=== PATIENT | male | born 1935 | race Caucasian/White ===

== ENCOUNTER 2020-08-27 14:48 | Inpatient (IN) ==
[2020-08-27] MEDS ORDERED: DEXAMETHASONE SOD INJ 10 MG/ML VIAL IV ONE (14:57)
--- NOTE | 2020-08-27 15:08 | Emergency Department Note ---
Impression & Plan Acute exacerbation of chronic obstructive airways disease, Abnormal ECG, Thrombocytopenia ED Provider Note NAME: ETHEL BUSH AGE: 84 SEX: M : 1935 ARRIVES VIA: Ambulance INFORMANT: Patient, prehospital personnel ED PROVIDER(S): Zane Major DO CHIEF COMPLAINT: Shortness of breath HPI: The patient is an 84-year-old male who presented to the emergency department for an evaluation of shortness of breath. The patient was given a DuoNeb prior to arrival. He normally wears 2 L of oxygen at home. He states that he has been noticing significant shortness of breath cough and difficulty breathing. He denies having any specific chest pain or lower extremity swelling. He states he has been having significant weakness as well as shortness of breath with ambulation. He denies having any fever. He has had no exposure to COVID-19 as far as he knows. He was not able to see his primary care physician for the symptoms. He states that they began approximately 2 weeks ago and have gotten worse significantly over the last 48 hours. The patient has been compliant with all of his medications including his nebulizer treatments. He states that these only help to a degree. ROS: See above HPI for pertinent positives & negatives. A total of 10 systems reviewed and were otherwise negative. PAST MEDICAL HISTORY: See Below PAST SURGICAL HISTORY: See Below FAMILY HISTORY: See Below SOCIAL HISTORY: See Below HOME MEDICATIONS: See Below ALLERGIES: See Below VITALS: See Below PHYSICAL EXAMINATION: GENERAL: The patient is awake and alert. The patient is very anxious appearing and appears to be uncomfortable. EYES: The conjunctivae are clear. The pupils are round and reactive. EARS, NOSE, MOUTH AND THROAT: The nose is without any evidence of any deformity. Mucous membranes are dry. NECK: The neck is nontender and supple. RESPIRATORY: Shallow respirations were noted. The patient is sitting straight up with significant difficulty breathing. There are retractions noted. Diminished breath sounds are noted throughout. CARDIOVASCULAR: Tachycardic rate with regular rhythm was noted. There was no definite murmur. GASTROINTESTINAL: The abdomen is soft. Abdomen is nontender. MUSCULOSKELETAL/EXTREMITIES: There is no evidence of gross deformity full range of motion is noted in the hips and shoulders. SKIN: There is no obvious evidence of any rash. There are no petechiae, pallor or cyanosis noted. NEUROLOGIC: Patient is awake alert and oriented x3. MEDICAL DECISION MAKING: The patient is an 84-year-old male who presented to the emergency department for an evaluation of difficulty breathing. The patient had very severe difficulty breathing despite being on supplemental oxygen. He was treated with bronchodilator therapy prior to arrival. He received steroids and IV fluids in the emergency department. I discussed the patient's laboratory and radiographic studies with him. He still appeared to be in significant shortness of breath. I discussed his case with the on-call [facility]. They have agreed to evaluate the patient in the emergency department for further management and disposition. The patient was reevaluated multiple times. He was also found to have low platelets. I am unsure the significance of this finding at this time. There is no reported trauma or altered mental status according to his son. Triage Nursing notes reviewed. Prior medical records reviewed Vital Signs: reviewed and remarkable for no significant abnormalities Differential diagnosis: Reactive airway disease, pneumonia, pneumothorax, COPD, CHF, infections, cardiac ischemia, pulmonary embolism, musculoskeletal, gastrointestinal, as well as other pathologies. ER treatment provided: See below Diagnostics interpreted by me: ECG: EKG was obtained in the emergency department. My interpretation is normal sinus rhythm at 72 bpm. There was no ectopy. Anterior ST depressions with T wave inversions were noted. LVH was noted by voltage criteria. This was compared to a tracing from December 082009. The anterior T wave abnormalities and ST depressions are new compared to the earlier tracing. Cardiac Monitoring: An order was placed for continuous cardiac monitoring. The monitor shows a rate of 75 beats per minute with sinus rhythm. Laboratory studies: As stated above and show below. Imaging studies: See below Consultation(s): 1737: I discussed this case with Lisa who is on-call for the [facility] group. ED COURSE: Procedures: none PDMP:reviewed and no issues Critical Care: I have personally spent greater than 55 minutes of critical care time in the direct management of this patient. This includes bedside care, interpretation of diagnostic studies, and testing, discussion with consultants, patient, and family members, and other required patient management activities. This 55 minutes is in excess of all separately billable procedures. 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 Chronic obstructive pulmonary disease Hyperlipidemia Hypertension Hypoxemia Surgical History H/O hernia repair S/P bronchoscopy S/P cataract extraction S/P rotator cuff repair S/P tonsillectomy and adenoidectomy Family History Father Aneurysm of abdominal aorta Social History Smoking Status: Former smoker Preferred Language: Singaporean marital status: / Current Living Situation: Alone current occupational status: retired Feels Safe at Home: Yes Allergies Allergies Allergy/AdvReac Type Severity Reaction Status Date / Time No Known Drug Allergies Allergy Verified 01/01/20 11:53 Home Meds Home Medications Medication Instructions Recorded Confirmed ascorbic acid (vitamin C) [Vitamin 1 cap PO DAILY 08/27/20 08/27/20 C] atorvastatin 40 mg PO HS 08/27/20 08/27/20 doxycycline hyclate 100 mg PO BID PRN 08/27/20 08/27/20 levalbuterol tartrate 1 puff INHALATION Q4H PRN 08/27/20 08/27/20 [id number] 1 tab PO DAILY 08/27/20 08/27/20 [Centrum Silver] prednisone 10 mg PO DIRECTED PRN 08/27/20 08/27/20 Previous Rx's Medication Instructions Recorded aspirin 81 mg tablet,delayed 81 mg PO DAILY #30 tab 03/30/19 release tiotropium bromide 18 mcg capsule 1 cap INH DAILY #30 puffs 02/28/20 with inhalation device irbesartan 150 mg tablet 150 mg PO DAILY #90 tab 05/02/20 metoprolol tartrate 25 mg tablet 25 mg PO BID #180 tab 05/29/20 Results & Data (ED) Vital Signs Vital Signs - 24 hr 08/27/20 15:02 08/27/20 15:04 08/27/20 15:05 Temperature 36.6 C Temperature Source Oral Pulse Rate 75 74 Pulse Rate from SpO2 Sensor Pulse Rhythm Regular Pulse Strength Normal Respiratory Rate 24 25 H Respiratory Effort / Characteristics SOB on Exertion Short of Breath SOB on Exertion Respiratory Pattern Tachypnea Blood Pressure 119/62 119/62 Blood Pressure Mean 70 81 Blood Pressure Position Lying Pulse Oximetry 100 100 100 Oxygen Delivery Method Nasal Cannula Nasal Cannula Oxygen Flow Rate 4 4 Sepsis Recent Fever Within 48 Hours No Sepsis New/Unexplained Change in Mental Status No Sepsis Action Taken by Nursing No Action Required 08/27/20 15:15 08/27/20 15:30 08/27/20 15:55 Temperature Temperature Source Pulse Rate 68 70 83 Pulse Rate from SpO2 Sensor 67 70 80 Pulse Rhythm Pulse Strength Respiratory Rate 28 H 25 H 23 Respiratory Effort / Characteristics Respiratory Pattern Blood Pressure 111/69 102/65 105/62 Blood Pressure Mean 85 76 76 Blood Pressure Position Pulse Oximetry 100 100 100 Oxygen Delivery Method Oxygen Flow Rate Sepsis Recent Fever Within 48 Hours Sepsis New/Unexplained Change in Mental Status Sepsis Action Taken by Nursing 08/27/20 16:00 08/27/20 16:15 08/27/20 16:30 Temperature Temperature Source Pulse Rate 78 73 77 Pulse Rate from SpO2 Sensor 77 73 77 Pulse Rhythm Pulse Strength Respiratory Rate 22 20 25 H Respiratory Effort / Characteristics Respiratory Pattern Blood Pressure 117/62 109/64 108/65 Blood Pressure Mean 78 82 76 Blood Pressure Position Pulse Oximetry 100 100 100 Oxygen Delivery Method Oxygen Flow Rate Sepsis Recent Fever Within 48 Hours Sepsis New/Unexplained Change in Mental Status Sepsis Action Taken by Nursing 08/27/20 16:45 08/27/20 17:05 08/27/20 17:15 Temperature Temperature Source Pulse Rate 77 75 72 Pulse Rate from SpO2 Sensor 74 76 72 Pulse Rhythm Pulse Strength Respiratory Rate 24 21 22 Respiratory Effort / Characteristics Respiratory Pattern Blood Pressure 127/77 127/73 118/70 Blood Pressure Mean 99 90 79 Blood Pressure Position Pulse Oximetry 97 100 100 Oxygen Delivery Method Oxygen Flow Rate Sepsis Recent Fever Within 48 Hours Sepsis New/Unexplained Change in Mental Status Sepsis Action Taken by [facility]dc Medications Current Medication List: was personally reviewed by me Laboratory Data Attestation: I reviewed the patient's lab results. Result diagrams: 08/27/20 15:20 08/27/20 15:20 Lab Results 08/27/20 08/27/20 08/27/20 Range/Units 15:20 15:20 15:20 WBC 9.59 (4.8-10.8) K/uL RBC 4.19 L (4.7-6.1) M/uL Hgb 12.2 L (14.0-18.0) g/dL POC Hgb (14.0-18.0) g/dl Hct 40.2 L (42-52) % POC Hct (42-52) % MCV 95.9 (80-100) fL MCH 29.1 (25-34) pg MCHC 30.3 L (32-36) g/dL RDW Std Deviation 47.1 H (36.4-46.3) fL RDW Coeff of Sandy 13.5 (11.5-14.5) % Plt Count 10 L* (130-400) K/uL Immature Gran % (Auto) 0.1 % Neut % (Auto) 77.7 % Lymph % (Auto) 10.0 % Ray % (Auto) 11.3 % Eos % (Auto) 0.6 % Baso % (Auto) 0.3 % Neut # (Auto) 7.45 H (1.4-6.5) K/uL Lymph # (Auto) 0.96 L (1.2-3.4) K/uL Ray # (Auto) 1.08 H (0.11-0.59) K/uL Eos # (Auto) 0.06 (0-0.5) K/uL Baso # (Auto) 0.03 (0-0.2) K/uL Immature Gran # (Auto) 0.01 (0.00-0.02) K/uL Platelet Estimate SIGNIFIC DECREASED (Normal) Echinocytes 1+ ESR 2 (0-14) mm/hr PT 12.4 H (9.0-12.0) Seconds INR 1.2 H (0.9-1.1) APTT 26.5 (21.0-31.0) Seconds PTT Ratio 0.9 D-Dimer 5590 H* (0-500) ug/L FEU POC Sodium (135-144) mmol/L Sodium (136-145) mmol/L POC Potassium (3.3-5.0) mmol/L Potassium (3.5-5.1) mmol/L POC Chloride (101-112) mmol/L Chloride (98-107) mmol/L Carbon Dioxide (21-32) mmol/L POC Total CO2 (24-31) mmol/L Anion Gap (3-11) POC Anion Gap (16-25) mmol/L POC BUN (7-18) mg/dl BUN (7-18) mg/dl Creatinine (0.6-1.4) mg/dl POC Creatinine (0.6-1.3) mg/dl Est Cr Clr Drug Dosing ml/min Est GFR ( Amer) Est GFR (Non-Af Amer) BUN/Creatinine Ratio (10-20) Glucose (70-99) mg/dl POC Glucose (other) (70-99) mg/dl Lactate (0.4-2.0) mmol/L Calcium (8.5-10.1) mg/dl POC Ioniz Calcium Boris (1.12-1.32) mmol/l Magnesium (1.8-2.4) mg/dl Total Bilirubin (0.2-1) mg/dl AST (15-37) U/L ALT (12-78) U/L Alkaline Phosphatase (45-117) U/L Troponin I (0-0.045) ng/ml C-Reactive Protein (0-0.29) mg/dl Total Protein (6.4-8.2) gm/dl Albumin (3.4-5.0) gm/dl Globulin (2.5-4.0) gm/dl Albumin/Globulin Ratio (0.9-2) Procalcitonin (0-0.5) ng/ml Specimen Hemolysis COVID-19 Eval Order SARS-CoV-2, RNA, NAAT (NEGATIVE) 08/27/20 08/27/20 08/27/20 Range/Units 15:20 15:20 15:20 WBC (4.8-10.8) K/uL RBC (4.7-6.1) M/uL Hgb (14.0-18.0) g/dL POC Hgb (14.0-18.0) g/dl Hct (42-52) % POC Hct (42-52) % MCV (80-100) fL MCH (25-34) pg MCHC (32-36) g/dL RDW Std Deviation (36.4-46.3) fL RDW Coeff of Sandy (11.5-14.5) % Plt Count (130-400) K/uL Immature Gran % (Auto) % Neut % (Auto) % Lymph % (Auto) % Ray % (Auto) % Eos % (Auto) % Baso % (Auto) % Neut # (Auto) (1.4-6.5) K/uL Lymph # (Auto) (1.2-3.4) K/uL Ray # (Auto) (0.11-0.59) K/uL Eos # (Auto) (0-0.5) K/uL Baso # (Auto) (0-0.2) K/uL Immature Gran # (Auto) (0.00-0.02) K/uL Platelet Estimate (Normal) Echinocytes ESR (0-14) mm/hr PT (9.0-12.0) Seconds INR (0.9-1.1) APTT (21.0-31.0) Seconds PTT Ratio D-Dimer (0-500) ug/L FEU POC Sodium (135-144) mmol/L Sodium 137 (136-145) mmol/L POC Potassium (3.3-5.0) mmol/L Potassium 4.3 (3.5-5.1) mmol/L POC Chloride (101-112) mmol/L Chloride 103 (98-107) mmol/L Carbon Dioxide 33 H (21-32) mmol/L POC Total CO2 (24-31) mmol/L Anion Gap 1.0 L (3-11) POC Anion Gap (16-25) mmol/L POC BUN (7-18) mg/dl BUN 31 H (7-18) mg/dl Creatinine 1.33 (0.6-1.4) mg/dl POC Creatinine (0.6-1.3) mg/dl Est Cr Clr Drug Dosing 39.8 ml/min Est GFR ( Amer) 56.9 Est GFR (Non-Af Amer) 49.1 BUN/Creatinine Ratio 23.4 H (10-20) Glucose 101 H (70-99) mg/dl POC Glucose (other) (70-99) mg/dl Lactate 1.5 (0.4-2.0) mmol/L Calcium 9.6 (8.5-10.1) mg/dl POC Ioniz Calcium Boris (1.12-1.32) mmol/l Magnesium 2.5 H (1.8-2.4) mg/dl Total Bilirubin 0.8 (0.2-1) mg/dl AST 18 (15-37) U/L ALT 21 (12-78) U/L Alkaline Phosphatase 66 (45-117) U/L Troponin I 0.050 H* (0-0.045) ng/ml C-Reactive Protein 0.66 H (0-0.29) mg/dl Total Protein 6.0 L (6.4-8.2) gm/dl Albumin 3.2 L (3.4-5.0) gm/dl Globulin 2.8 (2.5-4.0) gm/dl Albumin/Globulin Ratio 1.1 (0.9-2) Procalcitonin < 0.05 (0-0.5) ng/ml Specimen Hemolysis COVID-19 Eval Order SARS-CoV-2, RNA, NAAT (NEGATIVE) 08/27/20 08/27/20 08/27/20 Range/Units 15:20 15:20 15:29 WBC (4.8-10.8) K/uL RBC (4.7-6.1) M/uL Hgb (14.0-18.0) g/dL POC Hgb 12.9 L (14.0-18.0) g/dl Hct (42-52) % POC Hct 38 L (42-52) % MCV (80-100) fL MCH (25-34) pg MCHC (32-36) g/dL RDW Std Deviation (36.4-46.3) fL RDW Coeff of Sandy (11.5-14.5) % Plt Count (130-400) K/uL Immature Gran % (Auto) % Neut % (Auto) % Lymph % (Auto) % Ray % (Auto) % Eos % (Auto) % Baso % (Auto) % Neut # (Auto) (1.4-6.5) K/uL Lymph # (Auto) (1.2-3.4) K/uL Ray # (Auto) (0.11-0.59) K/uL Eos # (Auto) (0-0.5) K/uL Baso # (Auto) (0-0.2) K/uL Immature Gran # (Auto) (0.00-0.02) K/uL Platelet Estimate (Normal) Echinocytes ESR (0-14) mm/hr PT (9.0-12.0) Seconds INR (0.9-1.1) APTT (21.0-31.0) Seconds PTT Ratio D-Dimer (0-500) ug/L FEU POC Sodium 137 (135-144) mmol/L Sodium (136-145) mmol/L POC Potassium 4.3 (3.3-5.0) mmol/L Potassium (3.5-5.1) mmol/L POC Chloride 100 L (101-112) mmol/L Chloride (98-107) mmol/L Carbon Dioxide (21-32) mmol/L POC Total CO2 34 H (24-31) mmol/L Anion Gap (3-11) POC Anion Gap 8.0 L (16-25) mmol/L POC BUN 37 H (7-18) mg/dl BUN (7-18) mg/dl Creatinine (0.6-1.4) mg/dl POC Creatinine 1.4 H (0.6-1.3) mg/dl Est Cr Clr Drug Dosing ml/min Est GFR ( Amer) Est GFR (Non-Af Amer) BUN/Creatinine Ratio (10-20) Glucose (70-99) mg/dl POC Glucose (other) 106 H (70-99) mg/dl Lactate (0.4-2.0) mmol/L Calcium (8.5-10.1) mg/dl POC Ioniz Calcium Boris 1.41 H (1.12-1.32) mmol/l Magnesium (1.8-2.4) mg/dl Total Bilirubin (0.2-1) mg/dl AST (15-37) U/L ALT (12-78) U/L Alkaline Phosphatase (45-117) U/L Troponin I (0-0.045) ng/ml C-Reactive Protein (0-0.29) mg/dl Total Protein (6.4-8.2) gm/dl Albumin (3.4-5.0) gm/dl Globulin (2.5-4.0) gm/dl Albumin/Globulin Ratio (0.9-2) Procalcitonin (0-0.5) ng/ml Specimen Hemolysis COVID-19 Eval Order Covid19 [facility] SARS-CoV-2, RNA, NAAT NEGATIVE (NEGATIVE) Administered Medications Discontinued Medications Dexamethasone (Dexamethasone Sod Inj 10 Mg/Ml Vial) 10 mg IV NOW ONE Stop: 08/27/20 14:58 Last Admin: 08/27/20 16:20 Dose: 10 mg Documented by: [id number] Ioversol (Optiray 320 125ml) 118 ml IV ONCE ONE Stop: 08/27/20 15:47 Last Admin: 08/27/20 15:46 Dose: 118 ml Documented by: [id number] Imaging Data Radiologist's Impression: Patient: ETHEL BUSH Admit Date: 08/27/20 MR#: [id number] Address1: [address] [place] [address] Acct ID:[id number] Address2: Date: 1935 [facility] Zip: [place] [address] Age: 84 Location: ED Sex: M Room/Bed: Att Phy: Diagnosis: SOB, EDEMA TO HANDS Cherelle Phy: PCP,NO Service Date: 08/27/20 Fam Phy: Interpreting Phy: Sven Crocker MD Admit Phy: Ordering Phy: Zane Major DO cc: ~ CT ANGIOGRAM OF THE CHEST CLINICAL HISTORY: Dyspnea. COMPARISON STUDY: Chest x-ray dated 12/08/2009. TECHNIQUE: Following the IV administration of 118 cc of Optiray 320, CT angiogram of the chest was performed from the upper abdomen to the thoracic inlet utilizing the pulmonary embolus protocol. Images are reviewed in the axial, sagittal, and coronal planes. 3-D MIPS images are created and assessed. IV contrast was administered without complication. A dose lowering technique was utilized adhering to the principles of ALARA. CT DOSE: 342.92 mGycm FINDINGS: Thyroid: Imaged portions of the thyroid gland are normal in size and attenuation. Thoracic aorta: There is atherosclerotic calcification of the thoracic aorta. There is mild aneurysmal dilatation of the ascending thoracic aorta which measures up to 4.1 cm in diameter. The remainder of the thoracic aorta is normal in caliber, and the arch demonstrates standard 3-vessel anatomy. No dissection is seen in the ascending thoracic or the aortic arch. The disc descending thoracic aorta is not well opacified. Pulmonary vasculature: The pulmonary trunk is normal in caliber. There are no fi lling defects identified in main, lobar, or segmental pulmonary branches to suggest pulmonary embolus. Heart: The heart is mildly enlarged and without pericardial effusion. The coronary arteries are densely calcified. Lungs and pleural spaces: Apical scarring is observed. Advanced emphysematous ch anabela is noted. The trachea and central airways are clear. Numerous foci of parenchymal scarring are seen throughout both lungs. Subpleural scarring/fibrosis is seen in the subpleural anterior left upper lobe. There is no airspace consolidation typical for pneumonia or pleural effusion. A 3.2 x 2.9 cm linear opacity is seen in the paramediastinal right middle lobe on image #100. May millimeter focus of irregular nodularity seen in the right upper lobe along the major fissure on image #184, and an 8 mm focus of irregular nodularity in the right upper lobe as seen on image #207. A 4 mm pulmonary nodule in the left lower lobe as seen on image #125. There is diffuse peribronchial thickening. Minimal patchy tree-in-bud nodularity seen at the left lung base. Mediastinum: There is no mediastinal lymphadenopathy. Mary: Clear. Axillae: There is no axillary lymphadenopathy. Upper abdomen: A stent graft is partially visualized in the abdominal aorta. Reflux of contrast in the IVC and hepatic veins suggests cardiac dysfunction. Skeletal structures: The skeletal structures are osteopenic. Degenerative change is noted in the shoulders and thoracic spine. Hyperkyphosis is observed. No lytic or blastic bony lesions are seen. IMPRESSION: 1. There is no evidence of pulmonary embolus in the main, lobar, or segmental pulmonary arteries. 2. Advanced emphysema with extensive parenchymal abnormality and fibrotic change as above. 3. There is no lobar consolidation or pleural effusion. 4. A 3.1 cm linear irregular opacity is seen in the paramediastinal right middle lobe, with additional foci of subcentimeter nodularity scattered throughout both lungs. These findings may represent foci of scarring/fibrosis. Neoplasm would be impossible to exclude. Correlated with any prior studies to assess for stability/chronicity. Alternatively, a 3 month follow-up chest CT is recommended for reassessment. 5. There is mild diffuse peribronchial thickening with minimal tree-in-bud nodularity at the left lung base. Correlate clinically for evidence of bronchitis/reactive airway disease and/or a mild infectious/inflammatory pneumonitis. 6. A stent graft is partially imaged in the upper abdomen. 7. Additional findings as above. ACT 112: Negative or not required by law. Electronically signed by: Sven Crocekr M.D. 08/27/2020 4:06 PM Dictated: 08/27/20 1554 Transcribed: 08/27/20 1554 Blood Pressure Blood Pressure Findings: Normal blood pressure Discharge Plan Visit Data Chief Complaint: Shortness of Breath/Dyspnea Stated Complaint: SOB, EDEMA TO HANDS ED Provider: Zane Major Discharge Problem: Acute exacerbation of chronic obstructive airways disease, Abnormal ECG, Thrombocytopenia Patient Disposition: Being Evaluated by Hospitalist Condition: Good Forms Stand Alone Forms: My [facility] Prescriptions Prescriptions: No Action aspirin 81 mg tablet,delayed release (DR/EC) 81 mg PO DAILY Qty: 30 RF: 2 Spiriva with HandiHaler 18 mcg capsule, w/inhalation device 1 cap INH DAILY Qty: 30 RF: 11 irbesartan 150 mg tablet 150 mg PO DAILY Qty: 90 RF: 3 metoprolol tartrate 25 mg tablet 25 mg PO BID Qty: 180 RF: 2 Vitamin C 1,000 mg Capsule, Extended Release 1 cap PO DAILY RF: 0 Centrum Silver Tablet 1 tab PO DAILY RF: 0 levalbuterol tartrate 45 mcg/actuation HFA aerosol inhaler 1 puff INHALATION Q4H PRN (Reason: Wheezing) RF: 0 doxycycline hyclate 100 mg tablet 100 mg PO BID PRN (Reason: Rescue Kit) RF: 0 prednisone 10 mg tablet 10 mg PO DIRECTED PRN (Reason: Rescue Kit) RF: 0 atorvastatin 40 mg tablet 40 mg PO HS RF: 0 Referrals Referrals: PCP,NO [Primary Care Provider] -
[2020-08-27 15:42] LABS: iSTAT Creatinine 1.4 mg/dl (0.6-1.3); iSTAT Hemoglobin 12.9 g/dl (14.0-18.0); iSTAT Ionized Calcium 1.41 mmol/l (1.12-1.32); iSTAT Potassium 4.3 mmol/L (3.3-5.0)
[2020-08-27] MEDS ORDERED: OPTIRAY 320 125ml IV ONE (15:46)
[2020-08-27 16:03] LABS: INR 1.2 (0.9-1.1); Partial Thromboplastin Ratio 0.9; Partial Thromboplastin Time 26.5 Seconds (21.0-31.0); Prothrombin Time 12.4 Seconds (9.0-12.0)
--- NOTE | 2020-08-27 16:08 | CT Scan Report ---
CT ANGIOGRAM OF THE CHEST CLINICAL HISTORY: Dyspnea. COMPARISON STUDY: Chest x-ray dated 12/08/2009. TECHNIQUE: Following the IV administration of 118 cc of Optiray 320, CT angiogram of the chest was pe rformed from the upper abdomen to the thoracic inlet utilizing the pulmonary embolus protocol. Images are reviewed in the axial, sagittal, and coronal planes. 3-D MIPS images are created and assessed. I V contrast was administered without complication. A dose lowering technique was utilized adhering to the principles of ALARA. CT DOSE: 342.92 mGycm FINDINGS: Thyroid: Imaged portions of the thyroid gland are normal in size and attenuation. Thoracic aorta: There is atherosclerotic calcification of the thoracic aorta. There is mild aneurysma l dilatation of the ascending thoracic aorta which measures up to 4.1 cm in diameter. The remainder o f the thoracic aorta is normal in caliber, and the arch demonstrates standard 3-vessel anatomy. No di ssection is seen in the ascending thoracic or the aortic arch. The disc descending thoracic aorta is not well opacified. Pulmonary vasculature: The pulmonary trunk is normal in caliber. There are no filling defects identif ied in main, lobar, or segmental pulmonary branches to suggest pulmonary embolus. Heart: The heart is mildly enlarged and without pericardial effusion. The coronary arteries are dense ly calcified. Lungs and pleural spaces: Apical scarring is observed. Advanced emphysematous change is noted. The tr achea and central airways are clear. Numerous foci of parenchymal scarring are seen throughout both l ungs. Subpleural scarring/fibrosis is seen in the subpleural anterior left upper lobe. There is no ai rspace consolidation typical for pneumonia or pleural effusion. A 3.2 x 2.9 cm linear opacity is seen in the paramediastinal right middle lobe on image #100. May millimeter focus of irregular nodularity seen in the right upper lobe along the major fissure on image #184, and an 8 mm focus of irregular n odularity in the right upper lobe as seen on image #207. A 4 mm pulmonary nodule in the left lower lo be as seen on image #125. There is diffuse peribronchial thickening. Minimal patchy tree-in-bud nodul arity seen at the left lung base. Mediastinum: There is no mediastinal lymphadenopathy. Mary: Clear. Axillae: There is no axillary lymphadenopathy. Upper abdomen: A stent graft is partially visualized in the abdominal aorta. Reflux of contrast in th e IVC and hepatic veins suggests cardiac dysfunction. Skeletal structures: The skeletal structures are osteopenic. Degenerative change is noted in the shou lders and thoracic spine. Hyperkyphosis is observed. No lytic or blastic bony lesions are seen. IMPRESSION: 1. There is no evidence of pulmonary embolus in the main, lobar, or segmental pulmonary arteries. 2. Advanced emphysema with extensive parenchymal abnormality and fibrotic change as above. 3. There is no lobar consolidation or pleural effusion. 4. A 3.1 cm linear irregular opacity is seen in the paramediastinal right middle lobe, with additiona l foci of subcentimeter nodularity scattered throughout both lungs. These findings may represent foci of scarring/fibrosis. Neoplasm would be impossible to exclude. Correlated with any prior studies to assess for stability/chronicity. Alternatively, a 3 month follow-up chest CT is recommended for reass essment. 5. There is mild diffuse peribronchial thickening with minimal tree-in-bud nodularity at the left clarence g base. Correlate clinically for evidence of bronchitis/reactive airway disease and/or a mild infecti ous/inflammatory pneumonitis. 6. A stent graft is partially imaged in the upper abdomen. 7. Additional findings as above. ACT 112: Negative or not required by law. Electronically signed by: Sven Crocker M.D. 08/27/2020 4:06 PM
[2020-08-27 16:10] LABS: Albumin Globulin Ratio 1.1 (0.9-2); Albumin Level 3.2 gm/dl (3.4-5.0); BUN Creatinine Ratio 23.4 (10-20); Basophils # (auto) 0.03 K/uL (0-0.2); Basophils % (auto) 0.3 %; Bilirubin,Total 0.8 mg/dl (0.2-1); C Reactive Protein 0.66 mg/dl (0-0.29); Calcium 9.6 mg/dl (8.5-10.1); Creatinine Clr Calc Pharmacy 39.8 ml/min; Echinocytes 1+; Eosinophils # (auto) 0.06 K/uL (0-0.5); Eosinophils % (auto) 0.6 %; Est GFR (African American) 56.9; Est GFR (Non-African American) 49.1; Globulin 2.8 gm/dl (2.5-4.0); Hematocrit (blood only) 40.2 % (42-52); Hemoglobin 12.2 g/dL (14.0-18.0); Immature Granulocytes # (auto) 0.01 K/uL (0.00-0.02); Immature Granulocytes % (auto) 0.1 %; Lymphocytes # (auto) 0.96 K/uL (1.2-3.4); Magnesium 2.5 mg/dl (1.8-2.4); Mean Corpuscular Hemoglobin 29.1 pg (25-34); Mean Corpuscular Hgb Conc 30.3 g/dL (32-36); Mean Corpuscular Volume 95.9 fL (80-100); Monocytes # (auto) 1.08 K/uL (0.11-0.59); Monocytes % (auto) 11.3 %; Neutrophils # (auto) 7.45 K/uL (1.4-6.5); Neutrophils % (auto) 77.7 %; Platelet Count 10 K/uL (130-400); Platelet Estimate SIGNIFIC DECREASED (Normal); Potassium 4.3 mmol/L (3.5-5.1); RDW Coefficient of Variation 13.5 % (11.5-14.5); RDW Standard Deviation 47.1 fL (36.4-46.3); Red Blood Count 4.19 M/uL (4.7-6.1); White Blood Count 9.59 K/uL (4.8-10.8)
[2020-08-27 16:23] LABS: D Dimer 5590 ug/L FEU (0-500)
[2020-08-27 16:30] LABS: Troponin I 0.05 ng/ml (0-0.045)
[2020-08-27] MEDS ORDERED: PIPERACILL/TAZOBAC CONSULT ACTIVE PRN (16:48)
[2020-08-27] MEDS ORDERED: SODIUM CHLORIDE 0.9% 1000ML 1,000 ML IV ONE (16:48)
[2020-08-27] MEDS ORDERED: PIPERACILLIN/TAZOBACTAM 4.5 GM/120 ML BAG IV ONE (16:48)
[2020-08-27 17:24] LABS: Base Excess VBG 5.4 mEq/L; HCO3 VBG 34 mmol/L; PCO2 VBG 75 mmHg (38-50); PO2 VBG 21 mmHg; pH VBG 7.28 (7.36-7.41)
[2020-08-27 17:35] LABS: Oxygen Saturation VBG < 60.0 %
--- NOTE | 2020-08-27 20:46 | History & Physical Report ---
Date of Service August 27, 2020 Assessment & Plan (1) Acute exacerbation of chronic obstructive airways disease: -Admit to telemetry -Patient presenting from home with reports of worsening shortness of breath and generalized weakness x 2 weeks -In the ED, saturating well on 4 L of oxygen via nasal cannula -CTA chest negative for PE however shows mild diffuse peribronchial thickening with minimal tree-in-bud nodularity at the left lung base. -Has oxygen at home however does not use it regularly -S/p IV dexamethasone and IV Zosyn in the ED. Will continue with doxycycline. -Steroids for ITP as below, cristiano hernandez -Pulmonary consult, input appreciated (2) Thrombocytopenia: -Platelets 10K -No signs of bleeding -Most recent labs are from 2010 and platelets were 125K at that time -Discussed with Dr. Hawkins, ?? ITP. Recommends Decadron 40 mg p.o. daily x4 days. Check LDH and peripheral smear. Hold on platelet transfusion for now given no bleeding. (3) Abnormal ECG: (4) Elevated troponin: -Troponin 0.05, EKG shows T wave inversions in the anterior leads - may be due to underlying acute illness and respiratory issues -No reports of chest pain -Continue cycle cardiac enzymes, repeat EKG in the AM -consider echo or cardio eval if significant troponin elevation (5) Hypertension: -BP borderline low at times, likely due to hypovolemia from poor p.o. intake -Hold irbesartan for now, continue metoprolol as BP allows given elevated troponin and EKG changes (6) DVT prophylaxis: -SCDs due to thrombocytopenia History of Present Illness Chief Complaint: Weakness, shortness of breath Primary Care Provider: NO PCP 84-year-old male with PMH AAA s/p repair, COPD, HTN, and other problems listed below who presents the ED for evaluation of generalized weakness and shortness of breath. Patient reports symptoms have been going on for the past couple of weeks and have gotten significantly worse for the past few days. Patient has oxygen at home however does not wear it routinely. Reports he has been wearing it more often over the past couple weeks. He has been using 2 L. He reports feeling short of breath with minimal exertion. Not much cough or sputum production. Reports he felt lightheaded and dizzy with standing today however no syncopal event. Denies chest pain and palpitations. Reports his appetite has been poor however denies nausea, vomiting, abdominal pain, diarrhea. No fevers or chills. Denies urinary symptoms. In the ED, patient is saturating well on 4 L of oxygen via nasal cannula. CTA chest negative for PE however shows mild diffuse peribronchial thickening with minimal tree-in-bud nodularity at the left lung base. Labs show platelet count 10K. Troponin 0.05, EKG shows T wave inversions in the anterior leads. Patient was given dexamethasone 10 mg IV, IV Zosyn, IVF. Allergies Allergy/AdvReac Type Severity Reaction Status Date / Time No Known Drug Allergies Allergy Verified 01/01/20 11:53 Home Medications Medication Instructions Recorded Confirmed Type aspirin 81 mg tablet,delayed 81 mg PO DAILY #30 tab 03/30/19 08/27/20 Rx release tiotropium bromide 18 mcg capsule 1 cap INH DAILY #30 puffs 02/28/20 08/27/20 Rx with inhalation device irbesartan 150 mg tablet 150 mg PO DAILY #90 tab 05/02/20 08/27/20 Rx metoprolol tartrate 25 mg tablet 25 mg PO BID #180 tab 05/29/20 08/27/20 Rx ascorbic acid (vitamin C) 1,000 mg PO DAILY 08/27/20 08/27/20 History atorvastatin 40 mg PO HS 08/27/20 08/27/20 History doxycycline hyclate 100 mg PO BID PRN 08/27/20 08/27/20 History levalbuterol tartrate 1 puff INHALATION Q4H PRN 08/27/20 08/27/20 History uceaymcmeqsb-rojomgtg-ogikds 1 tab PO DAILY 08/27/20 08/27/20 History [Centrum Silver] prednisone 10 mg PO DIRECTED PRN 08/27/20 08/27/20 History Past Med/Surg History Medical History AI (aortic insufficiency) Aortic aneurysm Atherosclerotic heart disease of [place] coronary artery with other forms of angina pectoris Chronic obstructive pulmonary disease Hyperlipidemia Hypertension Hypoxemia Surgical History H/O hernia repair S/P AAA repair S/P bronchoscopy S/P cataract extraction S/P rotator cuff repair S/P tonsillectomy and adenoidectomy Family History Father Aneurysm of abdominal aorta Social History Smoking Status: Former smoker Preferred Language: Wolof marital status: / Current Living Situation: Alone current occupational status: retired Feels Safe at Home: Yes Review of Systems Review of Systems: ROS per HPI, all other systems reviewed and negative Physical Exam Constitutional: + thin and + cachectic; no acute distress Vitals as above Eyes: PERRL, conjunctivae normal, anicteric sclerae ENMT: external ear and nose normal, oropharynx normal Respiratory: normal respiratory effort; no respiratory distress Auscultation: + diminished lung sounds Cardiovascular: Rate/Rhythm: regular rate and regular rhythm Vessels: normal peripheral pulses Extremities: no edema Gastrointestinal (Abdomen): normal bowel sounds, soft, nontender, no hepatosplenomegaly Musculoskeletal: no cyanosis or clubbing, extremities motor strength 5/5 Skin: no rashes, warm and dry Neurologic: PERRL, EOMI, accommodation nl, no face palsy, no dysarthria Psychiatric: A+Ox3, euthymic affect Results & Data Results & Data ([facility]) Vital Signs (Past 12 Hours) Vital Signs Temp Pulse Resp BP Pulse Ox 08/27/20 20:15 72 26 H 99/57 L 100 08/27/20 20:04 78 25 H 87/54 L 100 08/27/20 20:02 76 27 H 78/39 L 100 08/27/20 20:01 77 24 08/27/20 20:00 74 26 H 100 08/27/20 19:45 82 23 103/57 L 97 08/27/20 19:31 83 22 97 08/27/20 19:30 84 23 93/56 L 08/27/20 19:18 80 27 H 97 08/27/20 19:17 85 24 121/58 L 89 L 08/27/20 19:01 77 20 94/62 L 98 08/27/20 19:00 77 22 100 08/27/20 18:45 78 22 127/83 100 08/27/20 18:30 74 23 119/62 100 08/27/20 18:15 73 22 115/69 100 08/27/20 18:00 74 26 H 117/79 100 08/27/20 17:46 74 20 135/72 100 08/27/20 17:30 71 20 105/70 100 08/27/20 17:15 72 22 118/70 100 08/27/20 17:05 75 21 127/73 100 08/27/20 16:45 77 24 127/77 97 08/27/20 16:30 77 25 H 108/65 100 08/27/20 16:15 73 20 109/64 100 08/27/20 16:00 78 22 117/62 100 08/27/20 15:55 83 23 105/62 100 08/27/20 15:30 70 25 H 102/65 100 08/27/20 15:15 68 28 H 111/69 100 08/27/20 15:05 36.6 C 74 25 H 119/62 100 08/27/20 15:04 100 08/27/20 15:02 75 24 119/62 100 Laboratory Results Short CBC 08/27/20 Range/Units 15:20 WBC 9.59 (4.8-10.8) K/uL Hgb 12.2 L (14.0-18.0) g/dL Hct 40.2 L (42-52) % Plt Count 10 L* (130-400) K/uL BMP 08/27/20 15:20 Sodium 137 Potassium 4.3 Chloride 103 Carbon Dioxide 33 H BUN 31 H Creatinine 1.33 Glucose 101 H Calcium 9.6 Cardiac Enzymes 08/27/20 Range/Units 15:20 Troponin I 0.050 H* (0-0.045) ng/ml Liver Function 08/27/20 Range/Units 15:20 Total Bilirubin 0.8 (0.2-1) mg/dl AST 18 (15-37) U/L ALT 21 (12-78) U/L Alkaline Phosphatase 66 (45-117) U/L Albumin 3.2 L (3.4-5.0) gm/dl Diagnostic Findings CTA CHEST IMPRESSION: 1. There is no evidence of pulmonary embolus in the main, lobar, or segmental pulmonary arteries. 2. Advanced emphysema with extensive parenchymal abnormality and fibrotic change as above. 3. There is no lobar consolidation or pleural effusion. 4. A 3.1 cm linear irregular opacity is seen in the paramediastinal right middle lobe, with additional foci of subcentimeter nodularity scattered throughout both lungs. These findings may represent foci of scarring/fibrosis. Neoplasm would be impossible to exclude. Correlated with any prior studies to assess for stability/chronicity. Alternatively, a 3 month follow-up chest CT is recommended for reassessment. 5. There is mild diffuse peribronchial thickening with minimal tree-in-bud nodularity at the left lung base. Correlate clinically for evidence of bronchitis/reactive airway disease and/or a mild infectious/inflammatory pneumonitis. 6. A stent graft is partially imaged in the upper abdomen. 7.Additional findings as above. Code Status & VTE Plan Code Status Patient is a DNR as per my discussion with him. VTE Prophylaxis Plan VTE Prophylaxis will be ordered: Yes Supervising Physician Co-Signing Physician Notes I have seen and examined the patient and have discussed the case with the provider above. I agree with the assessment and plan as stated. The patient is is 84-year-old man who presents to the ER with his son for generalized weakness and shortness of breath. At baseline he can ambulate independently, however over the past couple of weeks he has gotten significantly more weak. His oxygenation needs have not changed, however he does not wear his oxygen routinely, and his son who is present at bedside reports that he was confused on occasion a couple times this week indicating he may have been hypoxic. During this examination the patient was dropping into the low 80% oxygen saturation on 2 L nasal cannula and was bumped up to 4 eventually. He tries to cough but has a week ability to expectorate. He denies fevers or chills he is short of breath with minimal exertion. He has known underlying emphysema. Exam reveals very poor airflow in the lungs throughout all air multani with no evidence of wheezing, and crackles present only at the left base. Exam is otherwise as stated above. He denies any issues with bleeding, but then reports he occasionally bites the inside of his cheek and has significant bleeding. Platelets were found to be 10 K, and this is different from baseline which was pulled 5 years ago. Consultation with Dr. Hawkins by phone took place, and this appears consistent with ITP. The patient has lost significant amount of weight, although he does not know exactly how much. He is cachectic on exam with sunken shoulders and temporal wasting, evidence of potential malnutrition. Malignancy is a concern here. Peripheral smear ordered and the patient will start high- dose steroids in the morning. He is already received 10 mg of Decadron. He will continue with scheduled nebulized bronchodilator therapy and doxycycline to treat his COPD exacerbation. Although he received IV Zosyn in the ER, will continue with doxycycline. DO Vaibhav
[2020-08-27 22:52] LABS: Hepatitis B Surface Antigen Neg (Neg)
[2020-08-27 23:21] LABS: Hepatitis C IgG 13Yrs+Old_Rflx Neg (Neg)
[2020-08-27] MEDS ORDERED: ACETAMINOPHEN 325 MG TAB PO PRN (23:36)
[2020-08-28 00:34] LABS: Immature Platelet Fraction 33.3 % (0.9-8.3)
[2020-08-28] MEDS: METOPROLOL TARTRATE 25 MG TAB PO SCH ×3 (00:38→21:44)
[2020-08-28] MEDS: SODIUM CHLORIDE 0.9% 1000ML 1,000 ML IV SCH ×2 (00:38→12:32)
[2020-08-28] MEDS: DOXYCYCLINE HYCLATE 100 MG CAP PO SCH ×3 (01:44→21:44)
[2020-08-28] MEDS: ATORVASTATIN 40 MG TAB PO SCH ×2 (01:44→21:44)
[2020-08-28] MEDS ORDERED: INFLUENZA VACCINE HIGH DOSE 65+ 0.7 ML SYR IM ONE (06:11)
[2020-08-28] MEDS ORDERED: INFLUENZA ADMINISTRATION CHARGE ONE (06:11)
[2020-08-28 06:22] LABS: Mean Corpuscular Hgb Conc 30.3 g/dL (32-36); Platelet Count 8 K/uL (130-400)
[2020-08-28 06:25] LABS: Hematocrit (blood only) 37.3 % (42-52); Hemoglobin 11.3 g/dL (14.0-18.0); Mean Corpuscular Hemoglobin 29.2 pg (25-34); Mean Corpuscular Volume 96.4 fL (80-100); RDW Coefficient of Variation 13.4 % (11.5-14.5); RDW Standard Deviation 47.1 fL (36.4-46.3); Red Blood Count 3.87 M/uL (4.7-6.1); White Blood Count 4.87 K/uL (4.8-10.8)
[2020-08-28 06:26] LABS: Platelet Estimate SIGNIFIC DECREASED (Normal)
[2020-08-28 06:32] LABS: BUN Creatinine Ratio 27.2 (10-20); Calcium 9.2 mg/dl (8.5-10.1); Creatinine Clr Calc Pharmacy 44.8 ml/min; Est GFR (African American) 71.6; Est GFR (Non-African American) 61.8; Potassium 4.7 mmol/L (3.5-5.1)
[2020-08-28] MEDS ORDERED: ALBUT/IPRATROP 3MG/0.5MG NEB 3 ML VIAL NEB SCH (07:00)
[2020-08-28] MEDS: dexAMETHasone 4 MG TAB PO SCH (08:40)
[2020-08-28] MEDS: IRBESARTAN 150 MG TAB PO SCH (08:40)
[2020-08-28] MEDS ORDERED: ALBUT/IPRATROP 3MG/0.5MG NEB 3 ML VIAL NEB PRN (10:06)
[2020-08-28] MEDS ORDERED: VANCOMYCIN CONSULT ACTIVE PRN (20:25)
--- NOTE | 2020-08-28 20:26 | Hospitalist Progress Note ---
Date of Service August 28, 2020 Assessment & Plan (1) Acute exacerbation of chronic obstructive airways disease: -Patient admitted from home with reports of worsening shortness of breath and generalized weakness x 2 weeks/possible COPD exacerbation, with superimposed viral infection COVID-19 negative - -CTA chest: IMPRESSION: 1. There is no evidence of pulmonary embolus in the main, lobar, or segmental pulmonary arteries. 2. Advanced emphysema with extensive parenchymal abnormality and fibrotic change as above. 3. There is no lobar consolidation or pleural effusion. 4. A 3.1 cm linear irregular opacity is seen in the paramediastinal right middle lobe, with additional foci of subcentimeter nodularity scattered throughout both lungs. These findings may represent foci of scarring/fibrosis. Neoplasm would be impossible to exclude. Correlated with any prior studies to assess for stability/chronicity. Alternatively, a 3 month follow-up chest CT is recommended for reassessment. Patient continue with supplemental oxygen, Patient status has improved, not tachycardic or tachypneic, has been afebrile (2) Thrombocytopenia: -Platelets 10K-8 k today -No signs of bleeding-no indication for platelet transfusion -Most recent labs are from 2010 and platelets were 125K at that time -Admission team discussed with otology oncology Dr. Hawkins, Consider ITP. Recommends Decadron 40 mg p.o. daily x4 days. Has normal LDH, no evidence of hemolysis peripheral smear: Normocytic normochromic erythrocytes, Platelet count decreased in number normal appearance, no evidence of schistocytes or spherocytes indicate evolving hemolytic process No overt morphological abnormality suggesting of myelodysplastic syndromes or hematologic anemia. Finding consistent with a nonspecific normocytic anemia and thrombocytopenia For daily CBC with differentials, avoid antiplatelets anticoagulations (3) Abnormal ECG: (4) Elevated troponin: -Troponin 0.05-serial labs within normal limit 0.0300.035 EKG shows T wave inversions in the anterior leads - may be due to underlying acute illness and respiratory issues -No reports of chest pain -Patient does not appears to have any cardiac event, Further cardiac work-up not indicated (5) Hypertension: -BP stable -cont irbesartan ,metoprolol (6) DVT prophylaxis: -SCDs due to thrombocytopenia CODE STATUS DNR/DNI Disposition, PT OT evaluation requested, Was at home presents with significant deconditioning Social service consult for discharge planning Admission and Anticipated Discharge Date Admission Date: August 27, 2020 Results & Data Results & Data ([facility]) Vital Signs (Past 12 Hours) Vital Signs Temp Pulse Pulse Pulse Pulse Resp BP 08/28/20 20:03 36.6 C 90 19 112/61 08/28/20 16:00 36.6 C 93 H 88 18 123/77 08/28/20 15:38 36.7 C 76 22 112/62 08/28/20 14:51 08/28/20 12:17 36.6 C 81 20 96/57 L 08/28/20 11:37 08/28/20 08:38 102 H 22 96/51 L Pulse Ox Pulse Ox Pulse Ox Pulse Ox 08/28/20 20:03 89 L 08/28/20 16:00 90 08/28/20 15:38 112 H 08/28/20 14:51 96 08/28/20 12:17 92 08/28/20 11:37 90 95 75 L 08/28/20 08:38 91
[2020-08-28] MEDS ORDERED: VANCOMYCIN HCL 1,000 MG in SODIUM CHLORIDE 0.9% 250 ML IV SCH (20:30)
[2020-08-28] MEDS ORDERED: VANCOMYCIN HCL 1,500 MG in SODIUM CHLORIDE 0.9% 500 ML IV ONE (21:30)
[2020-08-28 23:00] LABS: Appearance Urine Cloudy (Clear); Bacteria Urine Automated Negative (Negative); Bilirubin Urine Negative (Negative); Blood Urine Negative (Negative); Color Urine Yellow; Glucose Urine UA Negative (Negative); Ketones Urine Negative (Negative); Leukocyte Esterase Urine Negative (Negative); Nitrite Urine Negative (Negative); Protein Urine Negative (Negative); RBC Urine Automated 0-4 /hpf (0-4); Specific Gravity Urine 1.034 (1.000-1.030); Urobilinogen Urine Negative (Negative)
--- NOTE | 2020-08-29 05:53 | Electrocardiogram Report ---
Test Reason : Blood Pressure : / mmHG Vent. Rate : 072 BPM Atrial Rate : 072 BPM P-R Int : 152 ms QRS Dur : 094 ms QT Int : 392 ms P-R-T Axes : 085 090 087 degrees QTc Int : 429 ms Normal sinus rhythm Rightward axis ST elevation, consider early repolarization, pericarditis, or injury Abnormal ECG When compared with ECG of 08-DEC-2009 09:43, Vent. rate has decreased BY 43 BPM Non-specific change in ST segment in Anterior leads T wave inversion now evident in Anterior leads Confirmed by Sonu Rodriguez ([id number]) on 08/29/2020 5:53:21 AM Referred By: Confirmed By:Snou Rodriguez
--- NOTE | 2020-08-29 06:31 | Electrocardiogram Report ---
Test Reason : Blood Pressure : / mmHG Vent. Rate : 079 BPM Atrial Rate : 079 BPM P-R Int : 154 ms QRS Dur : 102 ms QT Int : 364 ms P-R-T Axes : 092 093 089 degrees QTc Int : 417 ms Suspect arm lead reversal, interpretation assumes no reversal Normal sinus rhythm Rightward axis Abnormal ECG When compared with ECG of 27-AUG-2020 15:01, No significant change was found Confirmed by Sonu Rodriguez ([id number]) on 08/29/2020 6:31:02 AM Referred By: REFERRED SELF Confirmed By:Sonu Rodriguez
[2020-08-29 07:51] LABS: BUN Creatinine Ratio 32.3 (10-20); Calcium 10.1 mg/dl (8.5-10.1); Creatinine Clr Calc Pharmacy 56.6 ml/min; Est GFR (African American) 91.6; Est GFR (Non-African American) 79.1; Hematocrit (blood only) 35.7 % (42-52); Hemoglobin 10.9 g/dL (14.0-18.0); Immature Granulocytes # (auto) 0.02 K/uL (0.00-0.02); Immature Granulocytes % (auto) 0.2 %; Lymphocytes # (auto) 0.67 K/uL (1.2-3.4); Lymphocytes % (auto) 6.4 %; Mean Corpuscular Hemoglobin 29.3 pg (25-34); Mean Corpuscular Hgb Conc 30.5 g/dL (32-36); Monocytes # (auto) 0.71 K/uL (0.11-0.59); Monocytes % (auto) 6.8 %; Neutrophils % (auto) 86.6 %; Platelet Count 19 K/uL (130-400); Platelet Estimate SIGNIFIC DECREASED (Normal); Potassium 4.5 mmol/L (3.5-5.1); RDW Coefficient of Variation 13.3 % (11.5-14.5); RDW Standard Deviation 45.8 fL (36.4-46.3); Red Blood Count 3.72 M/uL (4.7-6.1)
[2020-08-29] MEDS: DOXYCYCLINE HYCLATE 100 MG CAP PO SCH ×2 (07:51→20:37)
[2020-08-29] MEDS: dexAMETHasone 4 MG TAB PO SCH (07:52)
[2020-08-29] MEDS: METOPROLOL TARTRATE 25 MG TAB PO SCH ×2 (08:05→20:36)
--- NOTE | 2020-08-29 09:04 | Pharmacy Report ---
Pharmacy Abx Dose Short Note - Date of Service August 29, 2020 - Assessment & Plan Assessment 84 year old M receiving vancomycin for treatment of bacteremia Day # 2 of antimicrobial therapy. Plan Vancomycin Patient meets criteria for vancomycin AUC dosing nomogram AUC/DARRYL is the preferred PK/PD target for vancomycin * Target AUC/DARRYL = 400-600 * AUC guided dosing is effective and associated with decreased risk of nephrotoxicity Pharmacy will continue to follow and will adjust dose/frequency as necessary. Thank you.
[2020-08-29] MEDS ORDERED: VANCOMYCIN HCL 750 MG in SODIUM CHLORIDE 0.9% 250 ML IV SCH (10:00)
[2020-08-29 11:08] LABS: CMV IgG Antibody >10.00 U/mL; Hepatitis A Antibody IgM NON-REACTIVE (NON-REACTIVE); Hepatitis B Core Antibody IgM NON-REACTIVE (NON-REACTIVE)
[2020-08-29] MEDS: IRBESARTAN 150 MG TAB PO SCH (11:25)
--- NOTE | 2020-08-29 16:24 | Communication Note ---
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 doxycycline CT chest with contrast shows a 3 cm irregular mass in the right middle lobe paramediastinal area. Additional subcentimeter nodularity scattered throughout the both lung Pulmonology consulted for evaluation Shannan Terrell MD Patient is medically stable to be transferred out of PCU to medical telemetry
--- NOTE | 2020-08-29 18:33 | Hospitalist Progress Note ---
Date of Service August 29, 2020 Assessment & Plan (1) Acute exacerbation of chronic obstructive airways disease: CMV/EBV vital infection : -Patient admitted from home with reports of worsening shortness of breath and generalized weakness x 2 weeks/possible COPD exacerbation, with superimposed viral infection COVID-19 negative - on 2 L 02 resp status has improved, not tachycardic or tachypneic, has been afebrile Lab report reviewed: Patient is positive for CMV(cytomegalovirus ) IgG in an IgG, EBV(Quan-Gordon virus) capsid antigen IgG positive, EBV Quan-Gordon virus nuclear antigen positive Viral illness with CMV and EBV causing deconditioning/generalized weakness, thrombocytopenia, anemia Clinically improved with supportive care Afebrile, vitals remained stable Blood culture 1 bottle coag negative staph bronchitis contamination repeat blood cultures ordered Will DC IV vancomycin -CTA chest diffuse peribronchial thickening-possible bronchitis- P.o. doxycycline Lung Nodule : CT chest with contrast shows a 3 cm irregular mass in the right middle lobe paramediastinal area. Additional subcentimeter nodularity scattered throughout the both lung Pulmonology consulted for evaluation (2) Thrombocytopenia: platelet count improved to 18K today -No signs of bleeding-no indication for platelet transfusion -Most recent labs are from 2011 and platelets were 125K at that time -no evidence of ITP , thrombocytopenia , anemia due to viral illness Steroid d/nadja Has normal LDH, no evidence of hemolysis peripheral smear: Platelet count decreased in number normal appearance, no evidence of schistocytes or spherocytes indicate evolving hemolytic process No overt morphological abnormality suggesting of myelodysplastic syndromes or hematologic anemia. ordered daily CBC with differentials, avoid antiplatelets anticoagulations (3) Abnormal ECG: (4) Elevated troponin: -Troponin 0.05-serial labs within normal limit 0.0300.035 EKG shows T wave inversions in the anterior leads - may be due to underlying acute illness and respiratory issues -No reports of chest pain -Patient does not appears to have any cardiac event, Further cardiac work-up not indicated (5) Hypertension: -BP stable -cont irbesartan ,metoprolol (6) DVT prophylaxis: -SCDs due to thrombocytopenia CODE STATUS DNR/DNI Disposition, PT OT evaluation requested, PT eval recommending rehab / pt is very reluctant for inpatient rehab wants to return home with home PT when able Admission and Anticipated Discharge Date Admission Date: August 27, 2020 Subjective Follow up visit for Shortness of breath /Hypoxia : pt seen sitting up , on 2 L 02 via nasal canula improved from Prior says he feels a lot better since yesterday no cough , no SOB , feels tired and weak, but thinks in a day-or 2 will get better Review of Systems Review of Systems: All systems reviewed & are unremarkable except as noted in HPI & below Constitutional: + fatigue and + weakness; no fever and no body aches Respiratory: + dyspnea on exertion; no cough, no dyspnea and no wheezing Cardiovascular: no chest pain Physical Exam Constitutional: + thin and + cachectic; no acute distress Vitals as above Eyes: PERRL, conjunctivae normal, anicteric sclerae ENMT: external ear and nose normal, oropharynx normal Respiratory: normal respiratory effort; no respiratory distress Auscultation: + diminished lung sounds Cardiovascular: Rate/Rhythm: regular rate and regular rhythm Vessels: normal peripheral pulses Extremities: no edema Gastrointestinal (Abdomen): normal bowel sounds, soft, nontender, no hepatosplenomegaly Musculoskeletal: no cyanosis or clubbing, extremities motor strength 5/5 Skin: no rashes, warm and dry Neurologic: PERRL, EOMI, accommodation nl, no face palsy, no dysarthria Psychiatric: A+Ox3, euthymic affect Results & Data Results & Data ([facility]) Vital Signs (Past 12 Hours) Vital Signs Temp Pulse Pulse Pulse Resp BP Pulse Ox 08/29/20 16:00 69 08/29/20 15:05 36.4 C L 74 16 108/63 95 08/29/20 11:44 36.3 C L 78 16 122/78 100 08/29/20 07:56 36.6 C 92 H 15 129/65 08/29/20 07:15 67
--- NOTE | 2020-08-29 20:08 | Communication Note ---
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 Shannan Terrell MD
[2020-08-29] MEDS: ATORVASTATIN 40 MG TAB PO SCH (20:37)
[2020-08-29] MEDS ORDERED: VANCOMYCIN HCL 1,250 MG in SODIUM CHLORIDE 0.9% 250 ML IV SCH (22:00)
[2020-08-30 07:21] LABS: Acanthocytes 1+; Hematocrit (blood only) 38.1 % (42-52); Hemoglobin 11.6 g/dL (14.0-18.0); Immature Granulocytes # (auto) 0.02 K/uL (0.00-0.02); Immature Granulocytes % (auto) 0.1 %; Lymphocytes # (auto) 0.63 K/uL (1.2-3.4); Lymphocytes % (auto) 4.4 %; Mean Corpuscular Hgb Conc 30.4 g/dL (32-36); Mean Corpuscular Volume 95.3 fL (80-100); Mean Platelet Volume 12.5 fL (7.4-10.4); Monocytes # (auto) 1.33 K/uL (0.11-0.59); Monocytes % (auto) 9.2 %; Neutrophils # (auto) 12.44 K/uL (1.4-6.5); Neutrophils % (auto) 86.3 %; Platelet Count 22 K/uL (130-400); Platelet Estimate SIGNIFIC DECREASED (Normal); RDW Coefficient of Variation 13.3 % (11.5-14.5); White Blood Count 14.42 K/uL (4.8-10.8)
[2020-08-30 07:32] LABS: BUN Creatinine Ratio 36.7 (10-20); Calcium 9.9 mg/dl (8.5-10.1); Creatinine Clr Calc Pharmacy 59.5 ml/min; Est GFR (African American) 93.4; Est GFR (Non-African American) 80.6; Potassium 4.6 mmol/L (3.5-5.1)
[2020-08-30] MEDS: UMECLIDINIUM BROMIDE 62.5MCG/BLISTER 7 PUFFS/INHALER INH SCH (08:08)
[2020-08-30] MEDS: IRBESARTAN 150 MG TAB PO SCH (08:08)
[2020-08-30] MEDS: METOPROLOL TARTRATE 25 MG TAB PO SCH ×2 (08:09→20:00)
[2020-08-30] MEDS: DOXYCYCLINE HYCLATE 100 MG CAP PO SCH ×2 (08:09→20:01)
[2020-08-30] MEDS: ASCORBIC ACID 500 MG TAB PO SCH (08:09)
--- NOTE | 2020-08-30 10:20 | Pulmonary Consultation ---
Date of Consultation August 30, 2020 Assessment & Plan (1) Chronic obstructive pulmonary disease: CT chest 08/27/2020 personally reviewed: Severe centrilobular and paraseptal emphysema appreciated, patient has multiple pulmonary nodules bilaterally largest being 8 mm in the right upper lobe. Scarring of the left upper lobe is also appreciated. There is a 3.1 cm irregular opacity retrocardiac appreciated in the right middle lobe. It looks more like scarring. No mediastinal adenopathy -- Acute on chronic hypoxic respiratory failure Likely sec to COPD exacerbation Continue with inhaled bronchodilators, antibiotics Maintain SPO2 between 88 to 92% BiPAP nightly and as needed shortness of breath Patient is only on Spiriva at home. Would recommend to discharge the patient on Trelegy inhaler on a daily basis in place of Spiriva. --Multiple pulmonary nodules Patient also has 3.1 cm irregular opacity in the paramediastinal right middle lobe. It seems more like scarring. Other pulmonary nodules are also appreciated bilaterally which are less than equal to 8 mm Fibrotic changes also present in the left upper lobe Plan: Overall patient is 84-year-old with severe COPD and emphysema. I do not think he would be a candidate for any kind of treatment as this will just make his quality of life worse. CT chest in 3 months could be thought of but I would not recommend any further imaging or any work-up for the above CT finding. I will add Breo to Incruse with the patient is taking. Patient just completed 4 days of dexamethasone. We will give the patient prednisone 20 mg for 3 days. Complete the course of doxycycline Outpatient pulmonary follow-up. No further recommendation from pulmonary perspective. Will sign off. Please recall if needed. Please note the above document was generated using voice recognition software. It may contain grammatical, syntax or spelling errors.Any formal questions or concerns about the content, text or information contained within the body of this dictation should be directly addressed to the provider for clarification. 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 Patient was admitted to the hospital because of worsening shortness of breath and lethargy going on since last couple of days. Pulmonary were consulted because of abnormal CAT scan finding At the time of examination patient was sitting comfortably on the bed. He said that he is feeling lipid better. He has been on chronic 2 L nasal cannula has been using that. He denies any change in his cough production. Occasionally he has yellowish phlegm but mostly it is clear. Denies any hemoptysis. No weight loss, no night sweats. Denies any chest pain, no headache, no nausea, no vomiting. No dysuria, no diarrhea Social history: Greater than [id number] smoking history quit approximately 30 years ago. No history of asthma. Allergies Allergy/AdvReac Type Severity Reaction Status Date / Time No Known Drug Allergies Allergy Verified 01/01/20 11:53 Home Medications Medication Instructions Recorded Confirmed Type aspirin 81 mg tablet,delayed 81 mg PO DAILY #30 tab 03/30/19 08/27/20 Rx release tiotropium bromide 18 mcg capsule 1 cap INH DAILY #30 puffs 02/28/20 08/27/20 Rx with inhalation device irbesartan 150 mg tablet 150 mg PO DAILY #90 tab 05/02/20 08/27/20 Rx metoprolol tartrate 25 mg tablet 25 mg PO BID #180 tab 05/29/20 08/27/20 Rx ascorbic acid (vitamin C) 1,000 mg PO DAILY 08/27/20 08/27/20 History atorvastatin 40 mg PO HS 08/27/20 08/27/20 History doxycycline hyclate 100 mg PO BID PRN 08/27/20 08/27/20 History levalbuterol tartrate 1 puff INHALATION Q4H PRN 08/27/20 08/27/20 History [id number] 1 tab PO DAILY 08/27/20 08/27/20 History [Centrum Silver] prednisone 10 mg PO DIRECTED PRN 08/27/20 08/27/20 History Patient History Medical History AI (aortic insufficiency) Aortic aneurysm Atherosclerotic heart disease of [place] coronary artery with other forms of angina pectoris Chronic obstructive pulmonary disease Hyperlipidemia Hypertension Hypoxemia Surgical History H/O hernia repair S/P AAA repair S/P bronchoscopy S/P cataract extraction S/P rotator cuff repair S/P tonsillectomy and adenoidectomy Family History Father Aneurysm of abdominal aorta Social History Smoking Status: Former smoker Preferred Language: Malian Communication Ability: Effective Professional Poker Player Required: No Beliefs That Will Affect Care: None marital status: / Current Living Situation: Alone current occupational status: retired Feels Safe at Home: Yes Assistive Devices: Oxygen - Continuous and Walker Review of Systems Review of Systems: All systems reviewed & are unremarkable except as noted in HPI & below Physical Exam Physical Exam: Constitutional: No acute distress, frail-appearing HEENT: EOMI, PERRLA, arcus senilis bilaterally Respiratory system: Severely decreased air entry bilaterally, minimal crackles bilateral lower lobes, no wheeze, no rhonchi CVS: S1-S2 positive, no murmurs or gallops Abdomen: Soft, nontender, nondistended, positive bowel sounds x4 Extremities: +2 pulses bilaterally radialis/ dorsalis pedis, no cyanosis, no ed rain, no clubbing Neuro: Awake alert oriented x3 Psych: Normal mood and affect G/U: No [place] Skin: no rashes, warm and dry Lymphatic: no cervical or axillary lymphadenopathy Results & Data Results & [facility] ([facility]) Vital Signs (Past 12 Hours) Vital Signs Temp Pulse Pulse Resp BP Pulse Ox 08/30/20 08:00 89 08/30/20 07:47 36.8 C 91 H 18 115/64 92 08/30/20 03:39 36.9 C 69 20 124/62 92 08/29/20 23:33 79 08/29/20 23:18 36.7 C 75 20 120/62 91 08/30/20 06:40 08/30/20 06:40 PG Care Time/CCT Total # of Minutes Spent Total Time Spent with Patient: Total time spent is greater than 50% in coordination of care (as documented) at patient's floor/unit and/or counseling patient: [place] [address] Initial Inpt Care Lvl 3 Patient Type New Diagnoses Chronic obstructive pulmonary disease J44.9 Multiple pulmonary nodules R91.8 Acute exacerbation of chronic obstructive airways disease J44.1
[2020-08-30] MEDS: CEROVITE ADV FORMULA TAB PO SCH (12:03)
[2020-08-30] MEDS: FLUTICASONE/VILANTEROL 100/25MCG 14 PUFFS/INHALER INH SCH (14:19)
--- NOTE | 2020-08-30 15:17 | Hospitalist Progress Note ---
Date of Service August 30, 2020 Assessment & Plan (1) Acute exacerbation of chronic obstructive airways disease: clinically continues to improve less fatigued and weak today has been afebrile admitted with weakness , resp distress due to viral infection as discussed below CMV/EBV vital infection : -Patient admitted from home with reports of worsening shortness of breath and generalized weakness x 2 weeks/possible COPD exacerbation, with superimposed viral infection COVID-19 negative - on 2 L 02 resp status has improved, not tachycardic or tachypneic, has been afebrile Lab report reviewed: Patient is positive for CMV(cytomegalovirus ) IgG in an IgG, EBV(Quan-Gordon virus) capsid antigen IgG positive, EBV Quan-Gordon virus nuclear antigen positive Viral illness with CMV and EBV causing deconditioning/generalized weakness, thrombocytopenia, anemia Clinically improved with supportive care Afebrile, vitals remained stable Blood culture 1 bottle coag negative staph bronchitis contamination repeat blood cultures ordered IV vanco dc/ed -CTA chest diffuse peribronchial thickening-possible bronchitis- P.o. doxycycline Lung Nodule : CT chest with contrast shows a 3 cm irregular mass in the right middle lobe paramediastinal area. Additional subcentimeter nodularity scattered throughout the both lung Pulmonology consulted for evaluation (2) Thrombocytopenia: due to viral illness platelet count continued to improve -No signs of bleeding-no indication for platelet transfusion -Most recent labs are from 2010 and platelets were 125K at that time Has normal LDH, no evidence of hemolysis peripheral smear: Platelet count decreased in number normal appearance, no evidence of schistocytes or spherocytes indicate evolving hemolytic process No overt morphological abnormality suggesting of myelodysplastic syndromes or hematologic anemia. ordered daily CBC with differentials, avoid antiplatelets anticoagulations (3) Abnormal ECG: (4) Elevated troponin: -Troponin 0.05-serial labs within normal limit 0.0300.035 EKG shows T wave inversions in the anterior leads - may be due to underlying acute illness and respiratory issues -No reports of chest pain -Patient does not appears to have any cardiac event, Further cardiac work-up not indicated (5) Hypertension: -BP stable -cont irbesartan ,metoprolol (6) DVT prophylaxis: -SCDs due to thrombocytopenia CODE STATUS DNR/DNI Disposition, plan to discharge home with home health and home PT on Tuesday as clinically improves need home 02 pt will benefit with rolling walker for ambulatory dysfunction /deconditioning script for rolling walker with seat will be given prior to discharge plan of care d/w pt's son Russel , comfortable and in agreement with above treatment plan all questions answered Admission and Anticipated Discharge Date Admission Date: August 27, 2020 Subjective Follow up visit for Shortness of breath /Hypoxia : doing well on 2 L 02 which his baseline able to walk to the bathroom with walker with minimum assistance no fever or chills vitals stable no Cough , chest pain or SOB Review of Systems Review of Systems: All systems reviewed & are unremarkable except as noted in HPI & below Constitutional: no fever and no chills Respiratory: no cough, no dyspnea and no dyspnea on exertion Cardiovascular: no chest pain Results & Data Results & Data ([facility]) Vital Signs (Past 12 Hours) Vital Signs Temp Pulse Pulse Resp BP Pulse Ox 08/30/20 14:57 75 08/30/20 11:57 36.8 C 90 22 101/60 96 08/30/20 08:00 89 08/30/20 07:47 36.8 C 91 H 18 115/64 92 08/30/20 03:39 36.9 C 69 20 124/62 92
[2020-08-30] MEDS: ATORVASTATIN 40 MG TAB PO SCH (20:01)
[2020-08-31 07:23] LABS: Eosinophils # (auto) 0.11 K/uL (0-0.5); Eosinophils % (auto) 1.2 %; Hematocrit (blood only) 36.4 % (42-52); Hemoglobin 11.1 g/dL (14.0-18.0); Immature Granulocytes # (auto) 0.01 K/uL (0.00-0.02); Immature Granulocytes % (auto) 0.1 %; Lymphocytes # (auto) 0.81 K/uL (1.2-3.4); Mean Corpuscular Hemoglobin 29.1 pg (25-34); Mean Corpuscular Hgb Conc 30.5 g/dL (32-36); Mean Corpuscular Volume 95.5 fL (80-100); Neutrophils # (auto) 7.18 K/uL (1.4-6.5); Neutrophils % (auto) 79.7 %; Platelet Count 7 K/uL (130-400); Platelet Estimate SIGNIFIC DECREASED (Normal); RDW Coefficient of Variation 13.3 % (11.5-14.5); RDW Standard Deviation 46.1 fL (36.4-46.3); Red Blood Count 3.81 M/uL (4.7-6.1); White Blood Count 9.01 K/uL (4.8-10.8)
[2020-08-31 07:26] LABS: Calcium 9.7 mg/dl (8.5-10.1); Creatinine Clr Calc Pharmacy 58.1 ml/min; Est GFR (African American) 92.5; Est GFR (Non-African American) 79.8
[2020-08-31] MEDS: FLUTICASONE/VILANTEROL 100/25MCG 14 PUFFS/INHALER INH SCH (09:30)
[2020-08-31] MEDS: IRBESARTAN 150 MG TAB PO SCH (09:31)
[2020-08-31] MEDS: UMECLIDINIUM BROMIDE 62.5MCG/BLISTER 7 PUFFS/INHALER INH SCH (09:33)
[2020-08-31] MEDS: METOPROLOL TARTRATE 25 MG TAB PO SCH ×2 (09:34→20:55)
[2020-08-31] MEDS: predniSONE 20 MG TAB PO SCH (09:34)
[2020-08-31] MEDS: ASCORBIC ACID 500 MG TAB PO SCH (09:34)
[2020-08-31] MEDS: CEROVITE ADV FORMULA TAB PO SCH (12:10)
[2020-08-31] MEDS ORDERED: SODIUM CHLORIDE 0.9% 250 ML IV PRN (18:43)
--- NOTE | 2020-08-31 18:48 | Communication Note ---
Date of Service: August 31, 2020 pt reports of bleeding around urethra after using urinal Platelet counts 7 this AM ordered to transfuse 2 units of platelets repeat CBC at 10 am Shannan Terrell MD
[2020-08-31] MEDS: ATORVASTATIN 40 MG TAB PO SCH (20:52)
[2020-08-31 22:46] LABS: Hematocrit (blood only) 34.1 % (42-52); Hemoglobin 10.4 g/dL (14.0-18.0); Mean Corpuscular Hemoglobin 28.9 pg (25-34); Mean Corpuscular Hgb Conc 30.5 g/dL (32-36); Mean Corpuscular Volume 94.7 fL (80-100); Mean Platelet Volume 12.6 fL (7.4-10.4); Platelet Count 13 K/uL (130-400); White Blood Count 10.58 K/uL (4.8-10.8)
[2020-08-31 22:48] LABS: Platelet Estimate SIGNIFIC DECREASED (Normal)
[2020-09-01 06:52] LABS: Acanthocytes 1+; Basophils # (auto) 0.01 K/uL (0-0.2); Basophils % (auto) 0.1 %; Eosinophils # (auto) 0.09 K/uL (0-0.5); Hematocrit (blood only) 32.7 % (42-52); Immature Granulocytes # (auto) 0.03 K/uL (0.00-0.02); Immature Granulocytes % (auto) 0.3 %; Lymphocytes # (auto) 0.86 K/uL (1.2-3.4); Lymphocytes % (auto) 9.4 %; Mean Corpuscular Hemoglobin 28.9 pg (25-34); Mean Corpuscular Hgb Conc 30.6 g/dL (32-36); Mean Corpuscular Volume 94.5 fL (80-100); Monocytes # (auto) 0.84 K/uL (0.11-0.59); Monocytes % (auto) 9.2 %; Platelet Count 8 K/uL (130-400); Platelet Estimate SIGNIFIC DECREASED (Normal); RDW Standard Deviation 44.7 fL (36.4-46.3); Red Blood Count 3.46 M/uL (4.7-6.1); White Blood Count 9.13 K/uL (4.8-10.8)
[2020-09-01] MEDS: FLUTICASONE/VILANTEROL 100/25MCG 14 PUFFS/INHALER INH SCH (07:44)
[2020-09-01] MEDS: IRBESARTAN 150 MG TAB PO SCH (07:45)
[2020-09-01] MEDS: UMECLIDINIUM BROMIDE 62.5MCG/BLISTER 7 PUFFS/INHALER INH SCH (07:45)
[2020-09-01] MEDS: METOPROLOL TARTRATE 25 MG TAB PO SCH ×2 (07:45→21:00)
[2020-09-01] MEDS: ASCORBIC ACID 500 MG TAB PO SCH (07:46)
[2020-09-01] MEDS: predniSONE 20 MG TAB PO SCH (07:46)
[2020-09-01] MEDS: CEROVITE ADV FORMULA TAB PO SCH (12:00)
--- NOTE | 2020-09-01 13:21 | Communication Note ---
Date of Service: September 01, 2020 patient received 2 units of Platelet transfusion yesterday ( platelet was 7 , with urethral bleeding ) platelet count briefly improved to 13 ( 10 pm lab ) no further bleeding episode H&H remains stable in 10 Platelet count dropped to 7 . persistent thrombocytopenia due to viral illness ? has not been on any antiplatelet since admission Doxycycline d/nadja yesterday for possible drug side effect causing low platelets peripheral blood smear done on admission was unremarkable continue to monitor closely for bleeding episode repeat CBC in am pt will need continued hospital stay due to severe thrombocytopenia , high risk for spontaneous bleeding will update son over phone Shannan Terrell MD
[2020-09-01] MEDS: ATORVASTATIN 40 MG TAB PO SCH (21:00)
--- NOTE | 2020-09-01 21:26 | Hospitalist Progress Note ---
Date of Service September 01, 2020 Assessment & Plan (1) Acute exacerbation of chronic obstructive airways disease: clinically continues to improve less fatigued and weak today has been afebrile admitted with weakness , resp distress due to viral infection as discussed below CMV/EBV vital infection : -Patient admitted from home with reports of worsening shortness of breath and generalized weakness x 2 weeks/possible COPD exacerbation, with superimposed viral infection COVID-19 negative - on 2 L 02 resp status has improved, not tachycardic or tachypneic, has been afebrile Lab report reviewed: Patient is positive for CMV(cytomegalovirus ) IgG in an IgG, EBV(Quan-Gordon virus) capsid antigen IgG positive, EBV Quan-Gordon virus nuclear antigen positive Viral illness with CMV and EBV causing deconditioning/generalized weakness, thrombocytopenia, anemia Clinically improved with supportive care Afebrile, vitals remained stable Blood culture 1 bottle coag negative staph bronchitis contamination repeat blood cultures ordered IV vanco dc/ed -CTA chest diffuse peribronchial thickening-possible bronchitis- P.o. doxycycline Lung Nodule : CT chest with contrast shows a 3 cm irregular mass in the right middle lobe paramediastinal area. Additional subcentimeter nodularity scattered throughout the both lung Pulmonology consulted for evaluation (2) Thrombocytopenia: patient received 2 units of Platelet transfusion yesterday ( platelet was 7 , with urethral bleeding ) platelet count briefly improved to 13 ( 10 pm lab ) no further bleeding episode H&H remains stable in 10 Platelet count dropped to 7 . persistent thrombocytopenia due to viral illness ? has not been on any antiplatelet since admission Doxycycline d/nadja yesterday for possible drug side effect causing low platelets peripheral blood smear done on admission was unremarkable continue to monitor closely for bleeding episode repeat CBC in am pt will need continued hospital stay due to severe thrombocytopenia , high risk for spontaneous bleeding (3) Abnormal ECG: (4) Elevated troponin: -Troponin 0.05-serial labs within normal limit 0.0300.035 EKG shows T wave inversions in the anterior leads - may be due to underlying acute illness and respiratory issues -No reports of chest pain -Patient does not appears to have any cardiac event, Further cardiac work-up not indicated (5) Hypertension: -BP stable -cont irbesartan ,metoprolol (6) DVT prophylaxis: -SCDs due to thrombocytopenia CODE STATUS DNR/DNI Disposition, plan to discharge home with home health and home PT on Tuesday as clinically improves need home 02 pt will benefit with rolling walker for ambulatory dysfunction /deconditioning script for rolling walker with seat will be given prior to discharge plan of care d/w pt's son Russel , comfortable and in agreement with above treatment plan all questions answered Admission and Anticipated Discharge Date Admission Date: August 27, 2020 Subjective Follow up visit for Shortness of breath /Hypoxia : no further bleeding episode no cough or SOB on 2 L 02 via nasal canula Review of Systems Review of Systems: All systems reviewed & are unremarkable except as noted in HPI & below Physical Exam Physical Exam: Constitutional: No acute distress, frail-appearing HEENT: EOMI, PERRLA, arcus senilis bilaterally Respiratory system: Severely decreased air entry bilaterally, minimal crackles bilateral lower lobes, no wheeze, no rhonchi CVS: S1-S2 positive, no murmurs or gallops Abdomen: Soft, nontender, nondistended, positive bowel sounds x4 Extremities: +2 pulses bilaterally radialis/ dorsalis pedis, no cyanosis, no edema, no clubbing Neuro: Awake alert oriented x3 Psych: Normal mood and affect G/U: No [place] Skin: no rashes, warm and dry Lymphatic: no cervical or axillary lymphadenopathy Results & Data Results & Data ([facility]) Vital Signs (Past 12 Hours) Vital Signs Temp Pulse Pulse Resp BP BP Pulse Ox 09/01/20 21:00 73 125/74 09/01/20 19:35 36.4 C L 88 18 102/60 90 09/01/20 16:08 37.1 C 76 18 118/67 97 09/01/20 15:00 72 09/01/20 11:29 36.8 C 67 18 118/61 98 09/01/20 11:12 97
[2020-09-02 07:13] LABS: Hematocrit (blood only) 32.5 % (42-52); Mean Corpuscular Hgb Conc 30.8 g/dL (32-36); Mean Corpuscular Volume 94.2 fL (80-100); Platelet Count 13 K/uL (130-400); RDW Standard Deviation 44.5 fL (36.4-46.3); Red Blood Count 3.45 M/uL (4.7-6.1); White Blood Count 8.24 K/uL (4.8-10.8)
[2020-09-02 07:14] LABS: Acanthocytes 1+; Eosinophils # (auto) 0.16 K/uL (0-0.5); Eosinophils % (auto) 1.9 %; Immature Granulocytes # (auto) 0.01 K/uL (0.00-0.02); Immature Granulocytes % (auto) 0.1 %; Lymphocytes # (auto) 0.87 K/uL (1.2-3.4); Lymphocytes % (auto) 10.6 %; Monocytes # (auto) 0.83 K/uL (0.11-0.59); Monocytes % (auto) 10.1 %; Neutrophils # (auto) 6.37 K/uL (1.4-6.5); Neutrophils % (auto) 77.3 %; Platelet Estimate SIGNIFIC DECREASED (Normal)
[2020-09-02] MEDS: UMECLIDINIUM BROMIDE 62.5MCG/BLISTER 7 PUFFS/INHALER INH SCH (08:22)
[2020-09-02] MEDS: FLUTICASONE/VILANTEROL 100/25MCG 14 PUFFS/INHALER INH SCH (08:23)
[2020-09-02] MEDS: METOPROLOL TARTRATE 25 MG TAB PO SCH ×2 (08:23→20:28)
[2020-09-02] MEDS: IRBESARTAN 150 MG TAB PO SCH (08:23)
[2020-09-02] MEDS: ASCORBIC ACID 500 MG TAB PO SCH (08:23)
[2020-09-02] MEDS: predniSONE 20 MG TAB PO SCH (08:23)
[2020-09-02] MEDS: CEROVITE ADV FORMULA TAB PO SCH (11:16)
--- NOTE | 2020-09-02 17:18 | Hospitalist Progress Note ---
Date of Service September 02, 2020 Assessment & Plan (1) Acute exacerbation of chronic obstructive airways disease: clinically continues to improve admitted with weakness , resp distress due to viral infection as discussed below CMV/EBV vital infection : -Patient admitted from home with reports of worsening shortness of breath and generalized weakness x 2 weeks/possible COPD exacerbation, with superimposed viral infection COVID-19 negative -Patient was on home oxygen has not been using regularly Two-step exercise done today shows needs 4 L oxygen at rest, 6 L by nasal cannula with activity, strips will be given Lab report reviewed: Patient is positive for CMV(cytomegalovirus ) IgG in an IgG, EBV(Quan-Gordon virus) capsid antigen IgG positive, EBV Quan-Gordon virus nuclear antigen positive Viral illness with CMV and EBV causing deconditioning/generalized weakness, thrombocytopenia, anemia Clinically improved with supportive care -CTA chest diffuse peribronchial thickening-possible bronchitis- Treated with p.o. doxycycline, at present does not have any cough no fever or chills Lung Nodule : CT chest with contrast shows a 3 cm irregular mass in the right middle lobe paramediastinal area. Additional subcentimeter nodularity scattered throughout the both lung Pulmonology consulted for evaluation-appreciate input, None nodule appears to be chronic scarring, give his advanced age, underlying advanced COPD, diagnostic bronchoscopy risk outweighs benefit. Pulmonary recommends conservative approach, change inhalers (2) Thrombocytopenia: Blood count improved to 13 patient received 2 units of Platelet transfusion yesterday ( platelet was 7 , with urethral bleeding ) no further bleeding episode H&H remains stable in 10 persistent thrombocytopenia due to viral illness ? has not been on any antiplatelet since admission peripheral blood smear done on admission was unremarkable Repeat CBC as above patient in a week (3) Abnormal ECG: (4) Elevated troponin: -Troponin 0.05-serial labs within normal limit 0.0300.035 EKG shows T wave inversions in the anterior leads - may be due to underlying acute illness and respiratory issues -No reports of chest pain -Patient does not appears to have any cardiac event, Further cardiac work-up not indicated (5) Hypertension: -BP stable -cont irbesartan ,metoprolol (6) DVT prophylaxis: -SCDs due to thrombocytopenia CODE STATUS DNR/DNI Disposition, Discharge home tomorrow with home health home PT pt will benefit with rolling walker for ambulatory dysfunction /deconditioning script for rolling walker with seat will be given prior to discharge plan of care d/w pt's son Russel , comfortable and in agreement with above treatment plan all questions answered Admission and Anticipated Discharge Date Admission Date: August 27, 2020 Subjective Follow up visit for Shortness of breath /Hypoxia : Patient resting on bed, states he feels fine, no cough no shortness of breath No further bleeding episode, no hematuria, no nasal bleed. Afebrile vital stable, Wants to be discharged home with home health tomorrow, Patient will require prescription for rolling walker with seat/home oxygen 4 L at latest and 6 L with activity, Prescription will be given to case management prior to discharge in a.m. Review of Systems Review of Systems: All systems reviewed & are unremarkable except as noted in HPI & below Physical Exam Physical Exam: Constitutional: No acute distress, frail-appearing HEENT: EOMI, PERRLA, arcus senilis bilaterally Respiratory system: Initial breath sound, clear to auscultate no wheeze or rales CVS: S1-S2 positive, no murmurs or gallops Abdomen: Soft, nontender, nondistended, positive bowel sounds x4 Extremities: no cyanosis, no edema, no clubbing Neuro: Awake alert oriented x3 Psych: Normal mood and affect G Results & Data Results & Data ([facility]) Vital Signs (Past 12 Hours) Vital Signs Temp Pulse Pulse Pulse Pulse Pulse Pulse 09/02/20 15:28 36.3 C L 09/02/20 11:43 36.3 C L 09/02/20 10:18 76 72 75 71 69 09/02/20 07:59 36.3 C L 09/02/20 07:44 63 Pulse Pulse Resp Resp Resp Resp Resp 09/02/20 15:28 72 24 09/02/20 11:43 16 09/02/20 10:18 79 18 18 18 18 09/02/20 07:59 79 16 09/02/20 07:44 Resp Resp BP Pulse Ox Pulse Ox Pulse Ox Pulse Ox 09/02/20 15:28 129/71 97 09/02/20 11:43 102/61 100 09/02/20 10:18 18 18 85 L 90 90 09/02/20 07:59 121/67 93 09/02/20 07:44 Pulse Ox Pulse Ox Pulse Ox 09/02/20 15:28 09/02/20 11:43 09/02/20 10:18 86 L 91 81 L 09/02/20 07:59 09/02/20 07:44
[2020-09-02] MEDS: ATORVASTATIN 40 MG TAB PO SCH (20:28)
[2020-09-03 06:58] LABS: Hematocrit (blood only) 34.3 % (42-52); Hemoglobin 10.5 g/dL (14.0-18.0); Mean Corpuscular Hemoglobin 28.8 pg (25-34); Mean Corpuscular Hgb Conc 30.6 g/dL (32-36); Mean Corpuscular Volume 94.2 fL (80-100); Platelet Count 14 K/uL (130-400); Platelet Estimate SIGNIFIC DECREASED (Normal); RDW Standard Deviation 44.4 fL (36.4-46.3); Red Blood Count 3.64 M/uL (4.7-6.1); White Blood Count 8.41 K/uL (4.8-10.8)
[2020-09-03 07:10] LABS: BUN Creatinine Ratio 24.7 (10-20); Calcium 9.3 mg/dl (8.5-10.1); Creatinine Clr Calc Pharmacy 61.5 ml/min; Est GFR (African American) 96.2; Potassium 4.5 mmol/L (3.5-5.1)
[2020-09-03] MEDS: ASCORBIC ACID 500 MG TAB PO SCH (08:29)
[2020-09-03] MEDS: IRBESARTAN 150 MG TAB PO SCH (08:29)
[2020-09-03] MEDS: predniSONE 20 MG TAB PO SCH (08:29)
[2020-09-03] MEDS: METOPROLOL TARTRATE 25 MG TAB PO SCH (08:29)
[2020-09-03] MEDS: FLUTICASONE/VILANTEROL 100/25MCG 14 PUFFS/INHALER INH SCH (08:30)
[2020-09-03] MEDS: UMECLIDINIUM BROMIDE 62.5MCG/BLISTER 7 PUFFS/INHALER INH SCH (08:30)
[2020-09-03] MEDS: CEROVITE ADV FORMULA TAB PO SCH (11:19)
--- NOTE | 2020-09-03 13:14 | Hospitalist Progress Note ---
Date of Service September 03, 2020 Assessment & Plan (1) Acute exacerbation of chronic obstructive airways disease: Acute on chronic respiratory failure Acute on chronic COPD exacerbation CMV/EBV vital infection COVID-19 negative Patient supposed to be using home oxygen--noncompliant -CTA:There is no evidence of pulmonary embolus in the main, lobar, or segmental pulmonary arteries. Advanced emphysema with extensive parenchymal abnormality and fibrotic change as above. There is no lobar consolidation or pleural effusion. A 3.1 cm linear irregular opacity is seen in the paramediastinal right middle lobe, with additional foci of subcentimeter nodularity scattered throughout both lungs. These findings may represent foci of scarring/fibrosis. Neoplasm would be impossible to exclude. Correlated with any prior studies to assess for stability/chronicity. Alternatively, a 3 month follow-up chest CT is recommended for reassessment. There is mild diffuse peribronchial thickening with minimal tree-in-bud nodularity at the left lung base. Correlate clinically for evidence of bronchitis/reactive airway disease and/or a mild infectious/inflammatory pneumonitis. A stent graft is partially imaged in the upper abdomen. -Received a course of doxycycline, steroids -Continue home inhalers -2 step: exercise: Needs 4 L oxygen at rest, 6 L by nasal cannula with activity, strips will be given -Advised to follow-up with pulmonology as outpatient Lung Nodule : CT chest with contrast shows a 3 cm irregular mass in the right middle lobe paramediastinal area. Additional subcentimeter nodularity scattered throughout the both lungs Given chronic scarring, give his advanced age, underlying advanced COPD, diagnostic bronchoscopy risks outweighs benefit. Appreciate Pulmonology input Needs follow-up with pulmonology upon discharge (2) Thrombocytopenia: Thrombocytopenia Likely secondary to viral illness S/P 2 units of platelet transfusion Monitor Advised to get repeat CBC as outpatient Plan to hold aspirin for now Peripheral blood smear unremarkable Slowly improving If persistent thrombocytopenia as outpatient, may need hematology evaluation as outpatient (3) Abnormal ECG: (4) Elevated troponin: As per prior hospitalist Troponin 0.05-serial labs within normal limit 0.0300.035 EKG shows T wave inversions in the anterior leads - may be due to underlying acute illness and respiratory issues No reports of chest pain Patient does not appears to have any cardiac event Further cardiac work-up not indicated (5) Hypertension: Continue Irbesartan ,metoprolol (6) DVT prophylaxis: SCDs due to thrombocytopenia CODE STATUS DNR/DNI Disposition Home with Home health Admission and Anticipated Discharge Date Admission Date: August 27, 2020 Subjective Patient is seen and examined at bedside Reports chronic non expectorant cough Eager to get discharged Denies chest pain, dyspnea, dizziness, nausea, abdominal pain Offers no other complaints Review of Systems Review of Systems: All systems reviewed & are unremarkable except as noted in HPI & below Physical Exam Physical Exam: Physical Exam: Vitals signs as noted above General Appearance: Thin, frail, chronically appearing, no apparent distress Head: normocephalic, Atraumatic Eyes: normal inspection, EOMI Neck: supple, Trachea midline Respiratory/Chest: Decreased breath sounds, CTA, No accessory muscle use Cardiovascular: S1, S2, No murmur Abdomen/GI:Soft, Non tender, Bowel sounds present Extremities/Musculoskelatal:normal inspection, no edema Neurologic/Psych:AAOX3, grossly no focal neurological deficits Skin: normal color, warm Results & Data Results & Data ([facility]) Vital Signs (Past 12 Hours) Vital Signs Temp Pulse Resp BP Pulse Ox 09/03/20 12:00 36.8 C 90 16 142/68 H 89 L 09/03/20 11:47 95 09/03/20 07:50 36.4 C L 95 H 16 128/74 95 Laboratory Results Short CBC 09/03/20 Range/Units 06:04 WBC 8.41 (4.8-10.8) K/uL Hgb 10.5 L (14.0-18.0) g/dL Hct 34.3 L (42-52) % Plt Count 14 L* (130-400) K/uL BMP 09/03/20 06:04 Sodium 135 L Potassium 4.5 Chloride 98 Carbon Dioxide 36 H BUN 20 H Creatinine 0.79 Glucose 88 Calcium 9.3
--- NOTE | 2020-09-03 18:51 | Discharge Summary ---
Date of Service September 03, 2020 Admission HPI Per Admitting Provider 84-year-old male with PMH AAA s/p repair, COPD, HTN, and other problems listed below who presents the ED for evaluation of generalized weakness and shortness of breath. Patient reports symptoms have been going on for the past couple of weeks and have gotten significantly worse for the past few days. Patient has oxygen at home however does not wear it routinely. Reports he has been wearing it more often over the past couple weeks. He has been using 2 L. He reports feeling short of breath with minimal exertion. Not much cough or sputum production. Reports he felt lightheaded and dizzy with standing today however no syncopal event. Denies chest pain and palpitations. Reports his appetite has been poor however denies nausea, vomiting, abdominal pain, diarrhea. No fevers or chills. Denies urinary symptoms. In the ED, patient is saturating well on 4 L of oxygen via nasal cannula. CTA chest negative for PE however shows mild diffuse peribronchial thickening with minimal tree-in-bud nodularity at the left lung base. Labs show platelet count 10K. Troponin 0.05, EKG shows T wave inversions in the anterior leads. Patient was given dexamethasone 10 mg IV, IV Zosyn, IVF. Admission Exam Per Admitting Provider Physical Exam Constitutional: + thin and + cachectic; no acute distress Vitals as above Eyes: PERRL, conjunctivae normal, anicteric sclerae ENMT: external ear and nose normal, oropharynx normal Respiratory: normal respiratory effort; no respiratory distress Auscultation: + diminished lung sounds Cardiovascular: Rate/Rhythm: regular rate and regular rhythm Vessels: normal peripheral pulses Extremities: no edema Gastrointestinal (Abdomen): normal bowel sounds, soft, nontender, no hepatosplenomegaly Musculoskeletal: no cyanosis or clubbing, extremities motor strength 5/5 Skin: no rashes, warm and dry Neurologic: PERRL, EOMI, accommodation nl, no face palsy, no dysarthria Psychiatric: A+Ox3, euthymic affect Principal Diagnosis Acute hypoxemic respiratory failure/COPD exacerbation/viral illness Quan-Gordon virus and cytomegalovirus. Thrombocytopenia-viral illness Discharge Data Allergies Allergy/AdvReac Type Severity Reaction Status Date / Time No Known Drug Allergies Allergy Verified 01/01/20 11:53 Consultations 08/27/20 17:27 ED Decision to Admit Stat 08/29/20 18:24 Consult Pulmonology Routine Procedures Performed CTA:There is no evidence of pulmonary embolus in the main, lobar, or segmental pulmonary arteries. Advanced emphysema with extensive parenchymal abnormality and fibrotic change as above. There is no lobar consolidation or pleural effusion. A 3.1 cm linear irregular opacity is seen in the paramediastinal right middle lobe, with additional foci of subcentimeter nodularity scattered throughout both lungs. These findings may represent foci of scarring/fibrosis. Neoplasm would be impossible to exclude. Correlated with any prior studies to assess for stability/chronicity. Alternatively, a 3 month follow-up chest CT is recommended for reassessment. There is mild diffuse peribronchial thickening with minimal tree-in-bud nodularity at the left lung base. Correlate clinically for evidence of bronchitis/reactive airway disease and/or a mild infectious/inflammatory pneumonitis. A stent graft is partially imaged in the upper abdomen. Ordered Studies 08/27/20 14:57 CT angio chest PE protocol Stat Hospital Course (1) Acute exacerbation of chronic obstructive airways disease: Acute on chronic respiratory failure Acute on chronic COPD exacerbation CMV/EBV vital infection COVID-19 negative Patient supposed to be using home oxygen--noncompliant -CTA:There is no evidence of pulmonary embolus in the main, lobar, or segmental pulmonary arteries. Advanced emphysema with extensive parenchymal abnormality and fibrotic change as above. There is no lobar consolidation or pleural effusion. A 3.1 cm linear irregular opacity is seen in the paramediastinal r ight middle lobe, with additional foci of subcentimeter nodularity scattered throughout both lungs. These findings may represent foci of scarring/fibrosis. Neoplasm would be impossible to exclude. Correlated with any prior studies to assess for stability/chronicity. Alternatively, a 3 month follow-up chest CT is recommended for reassessment. There is mild diffuse peribronchial thickening with minimal tree-in-bud nodularity at the left lung base. Correlate clinically for evidence of bronchitis/reactive airway disease and/or a mild infectious/inflammatory pneumonitis. A stent graft is partially imaged in the upper abdomen. -Received a course of doxycycline, steroids -Continue home inhalers -2 step: exercise: Needs 4 L oxygen at rest, 6 L by nasal cannula with activity, strips will be given -Advised to follow-up with pulmonology as outpatient Lung Nodule : CT chest with contrast shows a 3 cm irregular mass in the right middle lobe paramediastinal area. Additional subcentimeter nodularity scattered throughout the both lungs Given chronic scarring, give his advanced age, underlying advanced COPD, diagnostic bronchoscopy risks outweighs benefit. Appreciate Pulmonology input Needs follow-up with pulmonology upon discharge (2) Thrombocytopenia: Thrombocytopenia Likely secondary to viral illness S/P 2 units of platelet transfusion Monitor Advised to get repeat CBC as outpatient Plan to hold aspirin for now Peripheral blood smear unremarkable Slowly improving If persistent thrombocytopenia as outpatient, may need hematology evaluation as outpatient (3) Abnormal ECG: (4) Elevated troponin: As per prior hospitalist Troponin 0.05-serial labs within normal limit 0.0300.035 EKG shows T wave inversions in the anterior leads - may be due to underlying acute illness and respiratory issues No reports of chest pain Patient does not appears to have any cardiac event Further cardiac work-up not indicated (5) Hypertension: Continue Irbesartan ,metoprolol (6) DVT prophylaxis: SCDs due to thrombocytopenia CODE STATUS DNR/DNI Disposition Home with Home health Total Time Total Time Spent Total Time Spent (In Minutes): 45 minutes Total Time Includes: Examination of the Patient, Discharge Planning, Medication Reconciliation, Communication With Other Providers and Other Discharge Plan Discharge Items Patient Disposition: Home - Home Health Services Reason For Visit: COPD EXACERBATION Discharge Diagnosis: Acute hypoxemic respiratory failure/COPD exacerbation/viral illness Quan-Gordon virus and cytomegalovirus. Thrombocytopenia-viral illness Condition on Discharge: Good Activity: As commented below Activity Comment: As tolerated Exercise/Sports: Gradually increase as tolerated Non-emergency contact: Primary Care Provider and Finished Stock Inspector Call non-emergency contact if: you have any medication questions, your symptoms worsen, your pain is not controlled, your pain is worsening, your pain is unusual for you and you have a fever Follow-up/Referrals: Woodrow Zamorano MD [Outside Practitioners] - 09/08/20 3:40 pm (Date & Time 09/08/2020 3:40 PM Provider Jocelyn Mendes MD [facility] ) Diet: Heart Healthy Ambulatory Orders: Complete Blood Count with Diff (Routine) Timeframe: 1 Week Location: Determined by Patient Ordered By: Fredrick Prado Add Attending Provider Instructions: Follow-up with your primary care physician Dr. Zamorano on September 08, 2020 at 3:40 PM as scheduled Follow-up with your engine test cell technician in 2 weeks as advised Complete the prednisone course as prescribed Please utilize oxygen 24/7, 4 L via nasal cannula at rest, increase oxygen to 6 L via nasal cannula with activity. Do not take aspirin until follow up with your Primary care physician--Discuss for further recommendations Not take Advil ibuprofen Motrin, Aleve, can cause increased bleeding risk due to your low platelet counts. Get Blood Test: Complete blood count in 1 week to reassess your Platelet counts. Discussed with your primary care physician for further recommendations. Seek immediate medical attention if your symptoms reoccur or worsen Pending Studies at Discharge: No Stand-Alone Forms: [facility], Smoking Cessation Medications and DC Order Prescriptions: New Breo Ellipta 100-25 mcg/dose Blister With Device 1 ea inhalation DAILY 30 Days Qty: 28 RF: 3 prednisone 20 mg Tablet 20 mg PO DAILY 3 Days Qty: 3 RF: 0 Continued Spiriva with HandiHaler 18 mcg capsule, w/inhalation device 1 cap INH DAILY Qty: 30 RF: 11 irbesartan 150 mg tablet 150 mg PO DAILY Qty: 90 RF: 3 metoprolol tartrate 25 mg tablet 25 mg PO BID Qty: 180 RF: 2 [id number] Tablet 1 tab PO DAILY RF: 0 levalbuterol tartrate 45 mcg/actuation HFA aerosol inhaler 1 puff INHALATION Q4H PRN (Reason: Wheezing) RF: 0 doxycycline hyclate 100 mg tablet 100 mg PO BID PRN (Reason: Rescue Kit) RF: 0 prednisone 10 mg tablet 10 mg PO DIRECTED PRN (Reason: Rescue Kit) RF: 0 atorvastatin 40 mg tablet 40 mg PO HS RF: 0 ascorbic acid (vitamin C) 1,000 mg Tablet Extended Release 1,000 mg PO DAILY RF: 0 Discontinued aspirin 81 mg tablet,delayed release (DR/EC) 81 mg PO DAILY Qty: 30 RF: 2 Discharge Orders: Discharge Order (Routine); Ordered 09/03/20 Ordered By: Fredrick Prado Admission Data Admit Date/Time: 08/27/20 19:55 Attending Provider: Fredrick Prado Admit Provider: Terri Esposito Primary Care Provider: PCP,NO Other Providers: Terri Esposito ; Chiqui Leigh Other Interventions: Discharge Summary Assessment (RN) Last Done: 09/03/20 14:12
== END 2020-09-03 15:00 | disposition home health service (06) | DRG 865 ==
LOC: ED 14:48 → SUATTDRO 19:55 → EDINP 19:55 → 2S 08-28 00:03 → 2N 08-29 16:16

== ENCOUNTER 2020-09-11 22:25 | Inpatient (IN) ==
--- NOTE | 2020-09-11 23:19 | Emergency Department Note ---
History of Present Illness General Chief complaint: Abnormal Labs/Diagnostic Testing Stated complaint: ABNORMAL LABS Time Seen by Provider: 09/11/20 22:53 Source: patient, family, RN notes reviewed and old records reviewed Mode of arrival: ambulatory Limitations: no limitations History of Present Illness Provider complaint: Low platelet count Onset (ago): week(s) 1 Associated symptoms: + denies other symptoms; no confusion, no chest pain, no diaphoresis, no fever/chills, no loss of appetite, no nausea/vomiting and no shortness of breath Treatments prior to arrival: none This is an 84-year-old male who was recently mated to [facility] over concerns about a COPD exacerbation. At the time the patient was found to have a low platelet count. He was following up with his primary care physician today and was found to have low platelets once again. He was called by the PCP and sent to the emergency department. Upon arrival to the emergency department the patient was pulse ox was found to be in the 60s however he is normally on 4 L of oxygen. The patient is currently on 4 L and is much more comfortable. The patient himself has no complaints. Home Medications Medication Instructions Recorded Confirmed Type tiotropium bromide 18 mcg capsule 1 cap INH DAILY #30 puffs 02/28/20 09/11/20 Rx with inhalation device irbesartan 150 mg tablet 150 mg PO DAILY #90 tab 05/02/20 09/11/20 Rx metoprolol tartrate 25 mg tablet 25 mg PO BID #180 tab 05/29/20 09/11/20 Rx ascorbic acid (vitamin C) 1,000 mg PO DAILY 08/27/20 09/11/20 History atorvastatin 40 mg PO HS 08/27/20 09/11/20 History doxycycline hyclate 100 mg PO BID PRN 08/27/20 09/11/20 History [id number] 1 tab PO DAILY 08/27/20 09/11/20 History prednisone 10 mg PO DIRECTED PRN 08/27/20 09/11/20 History Breo Ellipta 1 ea INHALATION DAILY 30 Days #28 09/02/20 09/11/20 Rx ea ipratropium-albuterol [Combivent 1 puff INHALATION Q6H PRN #4 g 09/15/20 Rx Respimat] prednisone 10 mg PO UD #18 tabs 09/15/20 Rx Allergies Allergy/AdvReac Type Severity Reaction Status Date / Time No Known Allergies Allergy Verified 09/11/20 23:01 Past Med/Surg History Medical History AI (aortic insufficiency) Aortic aneurysm Atherosclerotic heart disease of [place] coronary artery with other forms of angina pectoris Chronic obstructive pulmonary disease Hyperlipidemia Hypertension Hypoxemia Surgical History H/O hernia repair S/P AAA repair S/P bronchoscopy S/P cataract extraction S/P rotator cuff repair S/P tonsillectomy and adenoidectomy Family History Father Aneurysm of abdominal aorta Social History Smoking Status: Former smoker Hx Alcohol Use: No Preferred Language: Guyanese Communication Ability: Effective In Home Sales Representative Required: No Beliefs That Will Affect Care: None marital status: Unknown Current Living Situation: Alone current occupational status: retired Feels Safe at Home: Yes Assistive Devices: Walker Review of Systems A total of 10 systems reviewed and were otherwise negative Physical Exam Vital Signs Vital Signs - 24 hr 09/11/20 22:28 09/11/20 22:33 09/11/20 23:05 Temperature 36.4 C L Temperature Source Oral Pulse Rate 77 Respiratory Rate 30 H Respiratory Effort / Characteristics Labored Short of Breath Respiratory Depth Normal Blood Pressure 113/65 Blood Pressure Mean 81 Pulse Oximetry 60 L 90 Oxygen Delivery Method Room Air Non-rebreather Nasal Cannula Oxygen Flow Rate 0 4 Sepsis Recent Fever Within 48 Hours No Sepsis New/Unexplained Change in Mental Status No Sepsis Action Taken by Nursing No Action Required Oxygen Flow Rate - Titration 15 Pulse Oximetry Post Tiitration 90 VITAL SIGNS - Vital signs and nursing notes were reviewed. GENERAL - 84-year-old male appearing stated age who is in no acute distress. Communicates well with provider and answers questions appropriately. SKIN - Without rashes. HEAD - NC/AT. EYES - PERRL with EOMI bilaterally. Sclera anicteric. Palpebral conjunctiva pink and moist with no injection noted. EARS - No deformities of external structures noted on gross examination bilaterally. No pain elicited with palpation of the tragus bilaterally. External auditory canals without discharge or otorrhea. Tympanic membranes pearly springer without retraction or bulging. No fluid or purulent material visualized behind the TM. Handle of malleus, umbo, cone of light, pars tensa/flaccid all easily visualized. NOSE - Midline and without cyanosis. No epistaxis or purulent drainage noted. Septum midline without deviation or septal hematoma noted. MOUTH/OROPHARYNX - Without perioral cyanosis. Buccal mucosa pink and moist and without leukoplakia. Tongue midline with equal elevation of palate bilaterally. No tonsillar hypertrophy, erythema, or exudates noted. dentition noted. NECK - Neck with FROM. Supple to palpation. lymphadenopathy noted. No nuchal rigidity. LUNGS - Chest wall symmetric without accessory muscle use, intercostals retractions, or central cyanosis. Normal vesicular breath sounds CTA B/L. No wheezes, rales, or rhonchi appreciated. CARDIAC - RRR with S1/S2. No murmur, rubs, or gallops appreciated. ABDOMEN - Abdominal contour without pulsations or visible masses. BS normoactive all four quadrants. No tenderness, palpable masses, hepatosplenomegaly, or ascites noted. EXTREMITIES - No clubbing or peripheral cyanosis. No pretibial edema present. +3/5 radial, posterior tibial, and dorsalis pedis pulses palpated throughout. +5/5 strength noted in UE/LE bilaterally. NEUROLOGIC - Cranial nerves II through XII grossly intact. Sensory intact to light touch throughout. Patellar reflexes +2/4. PSYCH - A&Ox3 and cooperates fully with examiner. Pt is very pleasant and interacts well with examiner. Course Administered Medications Ascorbic Acid (Ascorbic Acid 500 Mg Tab) 1,000 mg PO DAILY MABEL Stop: 10/12/20 08:59 Last Admin: 09/16/20 07:54 Dose: 1,000 mg Documented by: [id number] Admin: 09/15/20 08:20 Dose: 1,000 mg Documented by: [id number] Admin: 09/14/20 07:58 Dose: 1,000 mg Documented by: [id number] Admin: 09/13/20 08:17 Dose: 1,000 mg Documented by: [id number] Admin: 09/12/20 08:37 Dose: 1,000 mg Documented by: [id number] Atorvastatin Calcium (Atorvastatin 40 Mg Tab) 40 mg PO HS MABEL Stop: 10/12/20 20:59 Last Admin: 09/15/20 20:12 Dose: 40 mg Documented by: [id number] Admin: 09/14/20 19:53 Dose: 40 mg Documented by: [id number] Admin: 09/13/20 19:42 Dose: 40 mg Documented by: [id number] Admin: 09/12/20 20:19 Dose: 40 mg Documented by: [id number] Fluticasone/Vilanterol (Fluticasone/Vilanterol 100/25mcg 14 Puffs/Inhaler) 1 puffs INH DAILY MABEL Stop: 10/12/20 08:59 Last Admin: 09/16/20 07:54 Dose: 1 puffs Documented by: [id number] Admin: 09/15/20 08:21 Dose: 1 puffs Documented by: [id number] Admin: 09/14/20 07:58 Dose: 1 puffs Documented by: [id number] Admin: 09/13/20 08:18 Dose: 1 puffs Documented by: [id number] Admin: 09/12/20 08:38 Dose: 1 puffs Documented by: [id number] Methylprednisolone 40 mg/ (Syringe) 0.64 mls @ 1.5 mls/min IV BID MABEL Stop: 10/13/20 20:59 Last Admin: 09/16/20 07:54 Dose: 1.5 mls/min Documented by: [id number] Admin: 09/15/20 20:12 Dose: 1.5 mls/min Documented by: [id number] Admin: 09/15/20 08:19 Dose: 1.5 mls/min Documented by: [id number] Admin: 09/14/20 19:53 Dose: 1.5 mls/min Documented by: [id number] Admin: 09/14/20 07:57 Dose: 1.5 mls/min Documented by: [id number] Admin: 09/13/20 19:42 Dose: 1.5 mls/min Documented by: [id number] Irbesartan (Irbesartan 150 Mg Tab) 150 mg PO DAILY MABEL Stop: 10/12/20 08:59 Last Admin: 09/16/20 07:54 Dose: 150 mg Documented by: [id number] Admin: 09/15/20 08:20 Dose: 150 mg Documented by: [id number] Admin: 09/14/20 07:58 Dose: 150 mg Documented by: [id number] Admin: 09/13/20 08:17 Dose: 150 mg Documented by: [id number] Admin: 09/12/20 08:37 Dose: 150 mg Documented by: [id number] Metoprolol Tartrate (Metoprolol Tartrate 25 Mg Tab) 25 mg PO BID MABEL Stop: 10/12/20 08:59 Last Admin: 09/16/20 07:53 Dose: 25 mg Documented by: [id number] Admin: 09/15/20 20:12 Dose: 25 mg Documented by: [id number] Admin: 09/15/20 08:19 Dose: 25 mg Documented by: [id number] Admin: 09/14/20 19:53 Dose: 25 mg Documented by: [id number] Admin: 09/14/20 07:57 Dose: 25 mg Documented by: [id number] Admin: 09/13/20 19:42 Dose: Not Given Documented by: [id number] Admin: 09/13/20 08:17 Dose: 25 mg Documented by: [id number] Admin: 09/12/20 20:19 Dose: 25 mg Documented by: [id number] Admin: 09/12/20 08:37 Dose: 25 mg Documented by: [id number] Multivitamins/Minerals (Cerovite Adv Formula Tab) 1 tab PO DAILY MABEL Stop: 10/12/20 08:59 Last Admin: 09/16/20 07:54 Dose: 1 tab Documented by: [id number] Admin: 09/15/20 08:20 Dose: 1 tab Documented by: [id number] Admin: 09/14/20 07:58 Dose: 1 tab Documented by: [id number] Admin: 09/13/20 08:17 Dose: 1 tab Documented by: [id number] Admin: 09/12/20 08:37 Dose: 1 tab Documented by: [id number] Umeclidinium [place] (Umeclidinium [place] 62.5mcg/Blister 7 Puffs/Inhaler) 1 puffs INH DAILY MABEL Stop: 10/12/20 08:59 Last Admin: 09/16/20 07:55 Dose: 1 puffs Documented by: [id number] Admin: 09/15/20 08:21 Dose: 1 puffs Documented by: [id number] Admin: 09/14/20 07:58 Dose: 1 puffs Documented by: [id number] Admin: 09/13/20 08:18 Dose: 1 puffs Documented by: [id number] Admin: 09/12/20 08:38 Dose: 1 puffs Documented by: [id number] Discontinued Medications Dexamethasone Sodium Phosphate (10 mg/ Syringe) 2.5 mls @ 1 mls/min IV ONE ONE Stop: 09/12/20 03:32 Last Admin: 09/12/20 05:36 Dose: 1 mls/min Documented by: [id number] Furosemide 20 mg/ Syringe 2 mls @ 4 mls/min IV TODAY@0400 MABEL Stop: 09/12/20 04:01 Last Admin: 09/12/20 05:36 Dose: 4 mls/min Documented by: [id number] Immune Globulin (Flebogamma 10%) 200 mls @ 0 mls/hr IV TODAY@1400,1430,1500 MBAEL; Protocol Stop: 09/13/20 15:01 Last Infusion: 09/13/20 18:33 Dose: 0 mls/hr Documented by: [id number] Admin: 09/13/20 17:31 Dose: 200 mls/hr Documented by: [id number] Infusion: 09/13/20 17:29 Dose: 200 mls/hr Documented by: [id number] Admin: 09/13/20 16:29 Dose: 200 mls/hr Documented by: [id number] Infusion: 09/13/20 16:29 Dose: 100 mls/hr Documented by: [id number] Infusion: 09/13/20 15:23 Dose: 100 mls/hr Documented by: [id number] Infusion: 09/13/20 14:59 Dose: 50 mls/hr Documented by: [id number] Admin: 09/13/20 14:34 Dose: 37 mls/hr Documented by: [id number] Infusion: 09/12/20 17:39 Dose: 0 mls/hr Documented by: [id number] Admin: 09/12/20 16:58 Dose: 300 mls/hr Documented by: [id number] Infusion: 09/12/20 16:58 Dose: 300 mls/hr Documented by: [id number] Admin: 09/12/20 16:18 Dose: 300 mls/hr Documented by: [id number] Infusion: 09/12/20 16:17 Dose: 0 mls/hr Documented by: [id number] Infusion: 09/12/20 15:45 Dose: 200 mls/hr Documented by: [id number] Infusion: 09/12/20 15:10 Dose: 100 mls/hr Documented by: [id number] Admin: 09/12/20 14:30 Dose: 37 mls/hr Documented by: [id number] Sodium Chloride (Nss) 500 mls @ 999 mls/hr IV .Q31M STA Stop: 09/13/20 16:39 Last Infusion: 09/13/20 17:08 Dose: 0 mls/hr Documented by: [id number] Admin: 09/13/20 16:33 Dose: 999 mls/hr Documented by: [id number] Medical Decision Making Differential Diagnosis Infection, dehydration, metabolic abnormality, hypo/hyperglycemia, electrolyte disturbance, anemia, hypoxia, cardiac sources, intracerebral event, toxicologic, neurologic, as well as other pathologies. Medical Records Attestation: I reviewed the patient's medical records. Home Medications Current Medication List: was personally reviewed by me Laboratory Data Attestation: I reviewed the patient's lab results. Result diagrams: 09/16/20 11:11 09/15/20 05:41 Lab Results 09/11/20 09/11/20 09/11/20 Range/Units 22:49 22:49 22:49 WBC Cancelled RBC Cancelled Hgb Cancelled Hct Cancelled MCV Cancelled MCH Cancelled MCHC Cancelled RDW Std Deviation Cancelled RDW Coeff of Sandy Cancelled Plt Count Cancelled MPV Cancelled Immature Gran % (Auto) Cancelled Neut % (Auto) Cancelled Lymph % (Auto) Cancelled [place] % (Auto) Cancelled Eos % (Auto) Cancelled Baso % (Auto) Cancelled Neut # (Auto) Cancelled Lymph # (Auto) Cancelled [place] # (Auto) Cancelled Eos # (Auto) Cancelled Baso # (Auto) Cancelled Immature Gran # (Auto) Cancelled Absolute Nucleated RBC Cancelled Nucleated RBC % (auto) Cancelled Neutrophils % (Manual) Cancelled Band Neutrophils % Cancelled Lymphocytes % (Manual) Cancelled Prolymphocyte % Cancelled Reactive Lymphs % (Man) Cancelled Monocytes % (Manual) Cancelled Eosinophils % (Manual) Cancelled Basophils % (Manual) Cancelled Metamyelocytes % (Man) Cancelled Myelocytes % (Man) Cancelled Promyelocytes % (Man) Cancelled Blast Cells % (Manual) Cancelled Plasma Cell % (Manual) Cancelled Other Cells % Cancelled Nucleated RBC % Cancelled Neutrophils # (Manual) Cancelled Band Neutrophils # Cancelled Total Absolute Neuts Cancelled Lymphocytes # (Manual) Cancelled Prolymphocyte # Cancelled Reactive Lymphs # Cancelled Total Abs Lymphocytes Cancelled Monocytes # (Manual) Cancelled Eosinophils # (Manual) Cancelled Basophils # (Manual) Cancelled Metamyelocytes # (Man) Cancelled Myelocytes # (Manual) Cancelled Promyelocytes # (Man) Cancelled Blast Cells # (Man) Cancelled Plasma Cell # (Manual) Cancelled Other Cells # Cancelled Nucleated RBCs # (Man) Cancelled Hypersegmented Neuts Cancelled Hyposegmented Neuts Cancelled Hypogranular Neuts Cancelled Large Granular Lymphs Cancelled # Lrg Granular Lymphs Cancelled Hairy Cells Cancelled Smudge Cells Cancelled Toxic Granulation Cancelled Toxic Vacuolation Cancelled Dohle Bodies Cancelled Lorelei Rods Cancelled Platelet Estimate Cancelled Hypogranular Platelets Cancelled Clumped Platelets Cancelled Giant Platelets Cancelled Platelet Satelliting Cancelled RBC Morphology Cancelled Polychromasia Cancelled Hypochromasia Cancelled Poikilocytosis Cancelled Basophilic Stippling Cancelled Anisocytosis Cancelled Microcytosis Cancelled Macrocytosis Cancelled Spherocytes Cancelled Pappenheimer Bodies Cancelled Sickle Cells Cancelled Target Cells Cancelled Tear Drop Cells Cancelled Ovalocytes Cancelled Stomatocytes Cancelled Gonzalez-[place] Bodies Cancelled Echinocytes Cancelled Acanthocytes (Spur) Cancelled Rouleaux Cancelled RBC Agglutinates Cancelled Schistocytes Cancelled RBC Morph Comment Cancelled Peripher Smr Path Cons ESR Cancelled Sezary Cell Cancelled PT 11.5 (9.0-12.0) Seconds INR 1.1 (0.9-1.1) APTT 21.9 (21.0-31.0) Seconds PTT Ratio 0.8 Sodium (136-145) mmol/L Potassium (3.5-5.1) mmol/L Chloride (98-107) mmol/L Carbon Dioxide (21-32) mmol/L Anion Gap (3-11) BUN (7-18) mg/dl Creatinine (0.6-1.4) mg/dl Est Cr Clr Drug Dosing ml/min Est GFR ( Amer) Est GFR (Non-Af Amer) BUN/Creatinine Ratio (10-20) Glucose (70-99) mg/dl Lactate (0.4-2.0) mmol/L Calcium (8.5-10.1) mg/dl Magnesium (1.8-2.4) mg/dl Ferritin (8-388) ng/ml Total Bilirubin (0.2-1) mg/dl AST (15-37) U/L ALT (12-78) U/L Alkaline Phosphatase (45-117) U/L Lactate Dehydrogenase (87-241) U/L C-Reactive Protein (0-0.29) mg/dl Total Protein (6.4-8.2) gm/dl Albumin (3.4-5.0) gm/dl Globulin (2.5-4.0) gm/dl Albumin/Globulin Ratio (0.9-2) COVID-19 Eval Order SARS-CoV-2, RNA, NAAT (NEGATIVE) Blood Type Antibody Screen 09/11/20 09/11/20 09/11/20 Range/Units 22:49 23:14 23:14 WBC RBC Hgb Hct MCV MCH MCHC RDW Std Deviation RDW Coeff of Sandy Plt Count MPV Immature Gran % (Auto) Neut % (Auto) Lymph % (Auto) [place] % (Auto) Eos % (Auto) Baso % (Auto) Neut # (Auto) Lymph # (Auto) [place] # (Auto) Eos # (Auto) Baso # (Auto) Immature Gran # (Auto) Absolute Nucleated RBC Nucleated RBC % (auto) Neutrophils % (Manual) Band Neutrophils % Lymphocytes % (Manual) Prolymphocyte % Reactive Lymphs % (Man) Monocytes % (Manual) Eosinophils % (Manual) Basophils % (Manual) Metamyelocytes % (Man) Myelocytes % (Man) Promyelocytes % (Man) Blast Cells % (Manual) Plasma Cell % (Manual) Other Cells % Nucleated RBC % Neutrophils # (Manual) Band Neutrophils # Total Absolute Neuts Lymphocytes # (Manual) Prolymphocyte # Reactive Lymphs # Total Abs Lymphocytes Monocytes # (Manual) Eosinophils # (Manual) Basophils # (Manual) Metamyelocytes # (Man) Myelocytes # (Manual) Promyelocytes # (Man) Blast Cells # (Man) Plasma Cell # (Manual) Other Cells # Nucleated RBCs # (Man) Hypersegmented Neuts Hyposegmented Neuts Hypogranular Neuts Large Granular Lymphs # Lrg Granular Lymphs Hairy Cells Smudge Cells Toxic Granulation Toxic Vacuolation Dohle Bodies Lorelei Rods Platelet Estimate Hypogranular Platelets Clumped Platelets Giant Platelets Platelet Satelliting RBC Morphology Polychromasia Hypochromasia Poikilocytosis Basophilic Stippling Anisocytosis Microcytosis Macrocytosis Spherocytes Pappenheimer Bodies Sickle Cells Target Cells Tear Drop Cells Ovalocytes Stomatocytes Gonzalez-[place] Bodies Echinocytes Acanthocytes (Spur) Rouleaux RBC Agglutinates Schistocytes RBC Morph Comment Peripher Smr Path Cons ESR Sezary Cell PT (9.0-12.0) Seconds INR (0.9-1.1) APTT (21.0-31.0) Seconds PTT Ratio Sodium 138 (136-145) mmol/L Potassium (3.5-5.1) mmol/L Chloride 101 (98-107) mmol/L Carbon Dioxide 35 H (21-32) mmol/L Anion Gap 2.0 L (3-11) BUN 24 H (7-18) mg/dl Creatinine 0.95 (0.6-1.4) mg/dl Est Cr Clr Drug Dosing 52.0 ml/min Est GFR ( Amer) 85.5 Est GFR (Non-Af Amer) 73.7 BUN/Creatinine Ratio 25.1 H (10-20) Glucose 116 H (70-99) mg/dl Lactate 1.2 (0.4-2.0) mmol/L Calcium 9.5 (8.5-10.1) mg/dl Magnesium (1.8-2.4) mg/dl Ferritin 115.5 (8-388) ng/ml Total Bilirubin 0.6 (0.2-1) mg/dl AST (15-37) U/L ALT 30 (12-78) U/L Alkaline Phosphatase 71 (45-117) U/L Lactate Dehydrogenase (87-241) U/L C-Reactive Protein 0.69 H (0-0.29) mg/dl Total Protein 5.7 L (6.4-8.2) gm/dl Albumin 3.0 L (3.4-5.0) gm/dl Globulin 2.7 (2.5-4.0) gm/dl Albumin/Globulin Ratio 1.1 (0.9-2) COVID-19 Eval Order SARS-CoV-2, RNA, NAAT (NEGATIVE) Blood Type A Positive Antibody Screen NEGATIVE 01/21/21 01/21/21 01/21/21 Range/Units 23:16 23:16 23:16 WBC 9.28 RBC 3.78 L Hgb 11.0 L Hct 36.5 L MCV 96.6 MCH 29.1 MCHC 30.1 L RDW Std Deviation 50.8 H RDW Coeff of Sandy 14.6 H Plt Count 4 L* MPV Immature Gran % (Auto) 0.2 Neut % (Auto) 83.9 Lymph % (Auto) 6.8 [place] % (Auto) 7.4 Eos % (Auto) 1.2 Baso % (Auto) 0.5 Neut # (Auto) 7.78 H Lymph # (Auto) 0.63 L [place] # (Auto) 0.69 H Eos # (Auto) 0.11 Baso # (Auto) 0.05 Immature Gran # (Auto) 0.02 Absolute Nucleated RBC Nucleated RBC % (auto) Neutrophils % (Manual) Band Neutrophils % Lymphocytes % (Manual) Prolymphocyte % Reactive Lymphs % (Man) Monocytes % (Manual) Eosinophils % (Manual) Basophils % (Manual) Metamyelocytes % (Man) Myelocytes % (Man) Promyelocytes % (Man) Blast Cells % (Manual) Plasma Cell % (Manual) Other Cells % Nucleated RBC % Neutrophils # (Manual) Band Neutrophils # Total Absolute Neuts Lymphocytes # (Manual) Prolymphocyte # Reactive Lymphs # Total Abs Lymphocytes Monocytes # (Manual) Eosinophils # (Manual) Basophils # (Manual) Metamyelocytes # (Man) Myelocytes # (Manual) Promyelocytes # (Man) Blast Cells # (Man) Plasma Cell # (Manual) Other Cells # Nucleated RBCs # (Man) Hypersegmented Neuts Hyposegmented Neuts Hypogranular Neuts Large Granular Lymphs # Lrg Granular Lymphs Hairy Cells Smudge Cells Toxic Granulation Toxic Vacuolation Dohle Bodies Lorelei Rods Platelet Estimate SIGNIFIC DECREASED Hypogranular Platelets Clumped Platelets Giant Platelets 1+ Platelet Satelliting RBC Morphology Polychromasia Hypochromasia Poikilocytosis Basophilic Stippling Anisocytosis Microcytosis Macrocytosis Spherocytes Pappenheimer Bodies Sickle Cells Target Cells Tear Drop Cells Ovalocytes Stomatocytes Gonzalez-[place] Bodies Echinocytes Acanthocytes (Spur) 1+ Rouleaux RBC Agglutinates Schistocytes RBC Morph Comment Peripher Smr Path Cons ESR 2 Sezary Cell PT (9.0-12.0) Seconds INR (0.9-1.1) APTT (21.0-31.0) Seconds PTT Ratio Sodium (136-145) mmol/L Potassium (3.5-5.1) mmol/L Chloride (98-107) mmol/L Carbon Dioxide (21-32) mmol/L Anion Gap (3-11) BUN (7-18) mg/dl Creatinine (0.6-1.4) mg/dl Est Cr Clr Drug Dosing ml/min Est GFR ( Amer) Est GFR (Non-Af Amer) BUN/Creatinine Ratio (10-20) Glucose (70-99) mg/dl Lactate (0.4-2.0) mmol/L Calcium (8.5-10.1) mg/dl Magnesium (1.8-2.4) mg/dl Ferritin (8-388) ng/ml Total Bilirubin (0.2-1) mg/dl AST (15-37) U/L ALT (12-78) U/L Alkaline Phosphatase (45-117) U/L Lactate Dehydrogenase 229 (87-241) U/L C-Reactive Protein (0-0.29) mg/dl Total Protein (6.4-8.2) gm/dl Albumin (3.4-5.0) gm/dl Globulin (2.5-4.0) gm/dl Albumin/Globulin Ratio (0.9-2) COVID-19 Eval Order SARS-CoV-2, RNA, NAAT (NEGATIVE) Blood Type Antibody Screen 09/11/20 09/11/20 09/11/20 Range/Units 23:16 23:33 23:33 WBC RBC Hgb Hct MCV MCH MCHC RDW Std Deviation RDW Coeff of [place] Plt Count MPV Immature Gran % (Auto) Neut % (Auto) Lymph % (Auto) [place] % (Auto) Eos % (Auto) Baso % (Auto) Neut # (Auto) Lymph # (Auto) [place] # (Auto) Eos # (Auto) Baso # (Auto) Immature Gran # (Auto) Absolute Nucleated RBC Nucleated RBC % (auto) Neutrophils % (Manual) Band Neutrophils % Lymphocytes % (Manual) Prolymphocyte % Reactive Lymphs % (Man) Monocytes % (Manual) Eosinophils % (Manual) Basophils % (Manual) Metamyelocytes % (Man) Myelocytes % (Man) Promyelocytes % (Man) Blast Cells % (Manual) Plasma Cell % (Manual) Other Cells % Nucleated RBC % Neutrophils # (Manual) Band Neutrophils # Total Absolute Neuts Lymphocytes # (Manual) Prolymphocyte # Reactive Lymphs # Total Abs Lymphocytes Monocytes # (Manual) Eosinophils # (Manual) Basophils # (Manual) Metamyelocytes # (Man) Myelocytes # (Manual) Promyelocytes # (Man) Blast Cells # (Man) Plasma Cell # (Manual) Other Cells # Nucleated RBCs # (Man) Hypersegmented Neuts Hyposegmented Neuts Hypogranular Neuts Large Granular Lymphs # Lrg Granular Lymphs Hairy Cells Smudge Cells Toxic Granulation Toxic Vacuolation Dohle Bodies Lorelei Rods Platelet Estimate Hypogranular Platelets Clumped Platelets Giant Platelets Platelet Satelliting RBC Morphology Polychromasia Hypochromasia Poikilocytosis Basophilic Stippling Anisocytosis Microcytosis Macrocytosis Spherocytes Pappenheimer Bodies Sickle Cells Target Cells Tear Drop Cells Ovalocytes Stomatocytes Gonzalez-Gal[place] Bodies Echinocytes Acanthocytes (Spur) Rouleaux RBC Agglutinates Schistocytes RBC Morph Comment Peripher Smr Path Cons ESR Sezary Cell PT (9.0-12.0) Seconds INR (0.9-1.1) APTT (21.0-31.0) Seconds PTT Ratio Sodium (136-145) mmol/L Potassium 4.8 (3.5-5.1) mmol/L Chloride (98-107) mmol/L Carbon Dioxide (21-32) mmol/L Anion Gap (3-11) BUN (7-18) mg/dl Creatinine (0.6-1.4) mg/dl Est Cr Clr Drug Dosing ml/min Est GFR ( Amer) Est GFR (Non-Af Amer) BUN/Creatinine Ratio (10-20) Glucose (70-99) mg/dl Lactate (0.4-2.0) mmol/L Calcium (8.5-10.1) mg/dl Magnesium 2.3 (1.8-2.4) mg/dl Ferritin (8-388) ng/ml Total Bilirubin (0.2-1) mg/dl AST 14 L (15-37) U/L ALT (12-78) U/L Alkaline Phosphatase (45-117) U/L Lactate Dehydrogenase (87-241) U/L C-Reactive Protein (0-0.29) mg/dl Total Protein (6.4-8.2) gm/dl Albumin (3.4-5.0) gm/dl Globulin (2.5-4.0) gm/dl Albumin/Globulin Ratio (0.9-2) COVID-19 Eval Order Covid19 IDNow atMMIC SARS-CoV-2, RNA, NAAT NEGATIVE (NEGATIVE) Blood Type Antibody Screen Imaging Data Attestation: I personally reviewed and interpreted this imaging study as follows: My Impression: 1 view of the chest was interpreted by me shows no evidence of pneumonia congestion or pneumothorax. Radiologist's Impression: [facility] [address], [phone] XRay Report Patient: ETHEL BUSHAdmit Date: 09/12/20MR#: [id number]: [id number] [facility] DRAcct ID:[id number] Date: 1935City Zip: [place], [place] [address]Ciq: 84Location: 2NSex: MRoom/Bed: [id number] Phy: Fredrick Prado, MDDiagnosis: ABNORMAL LABSPri Phy: Woodrow Zamorano MDSe rvice Date: 09/11/20Fam Phy:Interpreting Phy: Ruben Alves MDAdmit Phy: Sree Espana MD Ordering Phy: Brooks Vela MD cc: ~ XR chest 1V portable CLINICAL HISTORY: SEPSIS COMPARISON STUDY: CT scan dated 08/27/2020 FINDINGS: There is pulmonary emphysema. The patient is rotated. There are left upper lobe opacity similar to the prior CT scan likely representing areas of par enchymal scarring.[ IMPRESSION: 1. Severe emphysema 2. Left upper lobe opacity similar to the prior CT scan, likely representing areas of parenchymal scarring. ACT 112: Negative or not required by law. Electronically signed by: Ruben Alves M.D. 09/12/2020 6:54 AM Dictated: 09/12/20650Transcribed: 09/12/20650 ECG Data Attestation: I personally reviewed and interpreted this ECG as follows: Indication: + abdominal pain Rate (beats per minute): 69 Rhythm: + normal sinus ECG Intervals/blocks: + Normal QT-c (407) ECG [place]: + Right axis deviation ECG ST segments: no ST depression and no ST elevation Comparison ECG Date: from (08/28/2020) MDM Narrative Patient was seen and evaluated as above in room C6. Review was performed of nursing notes and vital signs. I did review pertinent previous visits and patient history. After obtaining a thorough history and physical examination the above work up was performed. This is an 84-year-old male who presents emergency department over concerns that the patient is thrombocytopenia. The patient's platelet count has continued to drop. I did discuss the case with the hospitalist service who did agree to meet the patient An order was placed for continuous cardiac monitoring. The monitor shows a rate of 83 with Normal SInus rhythm. The patient was evaluated during a period of high volume and high acuity while the hospital was at overcapacity during the global COVID-19 pandemic, and that diagnosis was suspected/considered upon their initial presentation. Their evaluation, treatment and testing was consistent with current guidelines for patients who present with complaints or symptoms that may be related to COVID- 19. Impression & Plan Thrombocytopenia Discharge Plan Visit Data Chief Complaint: Abnormal Labs/Diagnostic Testing Stated Complaint: ABNORMAL LABS ED Provider: Brooks Vela Discharge Problem: Thrombocytopenia Patient Disposition: Admitted As Inpatient Condition: Fair Discharge Instructions Interventions: ED Discharge Assessment Last Done: 09/12/20 03:00
[2020-09-11 23:26] LABS: INR 1.1 (0.9-1.1); Partial Thromboplastin Ratio 0.8; Partial Thromboplastin Time 21.9 Seconds (21.0-31.0); Prothrombin Time 11.5 Seconds (9.0-12.0)
[2020-09-11 23:45] LABS: Albumin Globulin Ratio 1.1 (0.9-2); BUN Creatinine Ratio 25.1 (10-20); Bilirubin,Total 0.6 mg/dl (0.2-1); C Reactive Protein 0.69 mg/dl (0-0.29); Calcium 9.5 mg/dl (8.5-10.1); Est GFR (African American) 85.5; Est GFR (Non-African American) 73.7; Ferritin 115.5 ng/ml (8-388); Globulin 2.7 gm/dl (2.5-4.0); Total Protein 5.7 gm/dl (6.4-8.2)
[2020-09-11 23:55] LABS: Potassium 4.8 mmol/L (3.5-5.1)
[2020-09-12] LABS: Magnesium 2.3 mg/dl (1.8-2.4)
[2020-09-12 00:01] LABS: Acanthocytes 1+; Basophils # (auto) 0.05 K/uL (0-0.2); Basophils % (auto) 0.5 %; Eosinophils # (auto) 0.11 K/uL (0-0.5); Eosinophils % (auto) 1.2 %; Giant Platelets 1+; Hematocrit (blood only) 36.5 % (42-52); Immature Granulocytes # (auto) 0.02 K/uL (0.00-0.02); Immature Granulocytes % (auto) 0.2 %; Lymphocytes # (auto) 0.63 K/uL (1.2-3.4); Lymphocytes % (auto) 6.8 %; Mean Corpuscular Hemoglobin 29.1 pg (25-34); Mean Corpuscular Hgb Conc 30.1 g/dL (32-36); Mean Corpuscular Volume 96.6 fL (80-100); Monocytes # (auto) 0.69 K/uL (0.11-0.59); Monocytes % (auto) 7.4 %; Neutrophils # (auto) 7.78 K/uL (1.4-6.5); Neutrophils % (auto) 83.9 %; Platelet Count 4 K/uL (130-400); Platelet Estimate SIGNIFIC DECREASED (Normal); RDW Coefficient of Variation 14.6 % (11.5-14.5); RDW Standard Deviation 50.8 fL (36.4-46.3); Red Blood Count 3.78 M/uL (4.7-6.1); White Blood Count 9.28 K/uL (4.8-10.8)
[2020-09-12] MEDS ORDERED: ONDANSETRON INJ 2 MG/ML 2 ML VIAL IV PRN (03:05)
[2020-09-12] MEDS ORDERED: ACETAMINOPHEN 325 MG TAB PO PRN (03:05)
[2020-09-12] MEDS ORDERED: NITROGLYCERIN SL 0.4 MG/TAB TAB SL PRN (03:05)
[2020-09-12] MEDS ORDERED: POLYETHYLENE (MIRALAX) 17 GM PACK PO PRN (03:05)
[2020-09-12] MEDS ORDERED: DEXAMETHASONE SOD INJ 10 MG/ML VIAL IV ONE (03:05)
[2020-09-12 03:20] LABS: Appearance Urine Clear (Clear); Bilirubin Urine Negative (Negative); Blood Urine Negative (Negative); Color Urine Yellow; Glucose Urine UA Negative (Negative); Ketones Urine Trace (Negative); Leukocyte Esterase Urine Negative (Negative); Nitrite Urine Negative (Negative); Protein Urine Negative (Negative); Specific Gravity Urine 1.022 (1.000-1.030); Urobilinogen Urine Negative (Negative)
[2020-09-12] MEDS ORDERED: DEXAMETHASONE SOD PHOSPHATE 10 MG in SYRINGE 0 ML IV ONE (03:30)
[2020-09-12] MEDS ORDERED: FUROSEMIDE 20 MG in SYRINGE 0 ML IV ONE (03:30)
--- NOTE | 2020-09-12 03:59 | History and Physical Report ---
DATE OF ADMISSION: 09/12/2020 CHIEF COMPLAINT: Abnormal labs. HISTORY OF PRESENT ILLNESS: This is an 84-year-old male with past medical history significant for COPD, hyperlipidemia, atherosclerotic cardiovascular disease, hypertension, history of aortic root dilatation, BPH, who was recently in the hospital with chronic obstructive pulmonary disease exacerbation and acute on chronic respiratory failure. He was discharged on 4 liters oxygen at rest and 6 liters of oxygen with activity. During admission, he was found to have CMV and EBV viral infection, also lung nodule was found, seen by Pulmonary, recommended to be just observation for now. He was also found to have low platelets, his platelets at that time on admission was 10. He received 2 units of platelets and at the time of discharge, platelets were 14. Today's outpatient labs, CBC checked and his platelets are 4, so advised to come back to the hospital. The patient denies any bleeding . Denies any blood in the stools or black stools or hematuria or epistaxis. He has chronic shortness of breath, not ambulating much, he just can go to commode with a walker. Lives alone. Family lives close by. Denies any fever, chills. Denies any cough. No headache, no blurred vision, no earache, no runny nose, no sore throat. Appetite is okay. No chest pain, no abdominal pain, no nausea. Currently resting comfortably and hemodynamically stable. ALLERGIES: No known drug allergies. PAST MEDICAL HISTORY: As mentioned above. PAST SURGICAL HISTORY: Colonoscopy, AAA repair, cataracts bilaterally, tonsillectomy, adenoidectomy, repair of inguinal hernia, left rotator cuff surgery. MEDICATIONS: The patient is on ascorbic acid 1000 mg p.o. daily, atorvastatin 40 mg p.o. at bedtime, doxycycline 100 mg p.o. b.i.d. p.r.n., Breo Ellipta 1 inhalation daily, irbesartan 150 mg p.o. daily, metoprolol tartrate 25 mg p.o. b.i.d., multivitamins with minerals 1 tablet p.o. daily, prednisone as directed, tiotropium bromide 18 mcg inhalation daily. FAMILY HISTORY: Significant for father had aneurysm of abdominal aorta. SOCIAL HISTORY: Currently lives alone, . Former smoker, smoked 1 pack a day for 30 years, quit in 1985. No alcohol use, no drug use. REVIEW OF SYMPTOMS: As per HPI. Rest of review of systems negative. PHYSICAL EXAMINATION: GENERAL: The patient is old and frail, not in acute distress. VITAL SIGNS: Temperature 36.4, pulse 77, respiratory rate in 20s, blood pressure 113/65, oxygen 90% on 4 liters. HEENT: Pupils equal, round, and reactive to light. Oral mucosa moist. NECK: No JVD, no neck masses. CARDIOVASCULAR: S1, S2, regular rate and rhythm, no murmur, no gallop. RESPIRATORY SYSTEM: Normal AP diameter. No accessory muscle use. No wheezing, no crackles. ABDOMEN: Soft, bowel sounds present, nontender. No distention. CENTRAL NERVOUS SYSTEM: Cranial nerves II-XII grossly intact. Nonfocal. EXTREMITIES: Mild pedal edema present, no erythema seen. LABORATORY DATA: WBC 9.3, hemoglobin 11, hematocrit 36.5, platelets 4, ESR 2. PT 11.5, INR 1.1, APTT 21.9. Sodium 138, potassium 4.8, chloride 101, bicarbonate 35, BUN 24, creatinine 0.95, serum glucose 116. Lactate 1.2, calcium 9.5, magnesium 2.3, ferritin 115. Total bilirubin 0.6, AST 14, ALT 30, alkaline phosphatase 71. Lactate dehydrogenase 229. C-reactive protein 0.69. SARS-CoV-2 negative. IMAGING: Chest x-ray, no acute findings seen. Emphysema. EKG: Normal sinus rhythm, rate of 69. ASSESSMENT AND PLAN: 1. This is an 84-year-old male who presents with abnormal labs, severe thrombocytopenia, platelets of 4. No obvious signs of bleeding. Hemoglobin is stable at 11. The patient was recently in the hospital with low platelets. At the time of admission, platelets were 10, and received 2 units of platelets. At that time, he was also found to have infection of EBV and CMV.Possible ITP from viral infectio?. We will consult hematology/oncology in a.m. We will give a dose of iv Decadron 10 mg and transfuse 2 units of plateletpheresis and monitor the platelets and monitor for any bleeding. Monitor in saperatec. 2. History of chronic obstructive pulmonary disease and chronic respiratory failure on 4 liters oxygen at rest and 6 liters while ambulation. Continue home inhalers, currently stable. 3. History of abdominal aortic aneurysm status post repair. 4. History of lung nodule seen by pulmonary last admission. Continue observation for now. 5. Hypertension. Continue irbesartan and metoprolol. We will monitor his blood pressure. 6. Deep venous thrombosis prophylaxis, sequential compression devices. 6. Code STATUS: FULL CODE as per my discussion with the patient. DISPOSITION: Closely monitor in the med tele. PT and OT prior to discharge. Social service to help with discharge planning. ALYSHA
[2020-09-12] MEDS ORDERED: FUROSEMIDE 40 MG/4 ML VIAL IV ONE (04:00)
[2020-09-12] MEDS ORDERED: FUROSEMIDE 20 MG in SYRINGE 0 ML IV SCH (04:00)
[2020-09-12] MEDS ORDERED: Nursing to Pharmacy Communication SCH (04:45)
[2020-09-12] MEDS ORDERED: INFLUENZA VACCINE HIGH DOSE 65+ 0.7 ML SYR IM ONE (05:00)
[2020-09-12] MEDS ORDERED: INFLUENZA ADMINISTRATION CHARGE ONE (05:00)
[2020-09-12 06:42] LABS: BUN Creatinine Ratio 27.9 (10-20); Calcium 8.8 mg/dl (8.5-10.1); Creatinine Clr Calc Pharmacy 66.8 ml/min; Est GFR (African American) 98.9; Est GFR (Non-African American) 85.3; Magnesium 2.3 mg/dl (1.8-2.4); Potassium 4.5 mmol/L (3.5-5.1)
[2020-09-12 06:45] LABS: Mean Corpuscular Hgb Conc 30.1 g/dL (32-36); Mean Platelet Volume 11.1 fL (7.4-10.4); Platelet Count 14 K/uL (130-400)
[2020-09-12 06:46] LABS: Basophils # (auto) 0.04 K/uL (0-0.2); Basophils % (auto) 0.4 %; Eosinophils % (auto) 1.1 %; Hematocrit (blood only) 31.2 % (42-52); Hemoglobin 9.4 g/dL (14.0-18.0); Immature Granulocytes # (auto) 0.02 K/uL (0.00-0.02); Immature Granulocytes % (auto) 0.2 %; Lymphocytes # (auto) 0.78 K/uL (1.2-3.4); Lymphocytes % (auto) 8.7 %; Mean Corpuscular Hemoglobin 28.9 pg (25-34); Monocytes # (auto) 0.69 K/uL (0.11-0.59); Monocytes % (auto) 7.7 %; Neutrophils # (auto) 7.34 K/uL (1.4-6.5); Neutrophils % (auto) 81.9 %; RDW Coefficient of Variation 14.6 % (11.5-14.5); RDW Standard Deviation 50.6 fL (36.4-46.3); Red Blood Count 3.25 M/uL (4.7-6.1); White Blood Count 8.97 K/uL (4.8-10.8)
--- NOTE | 2020-09-12 06:55 | XRay Report ---
XR chest 1V portable CLINICAL HISTORY: SEPSIS COMPARISON STUDY: CT scan dated 08/27/2020 FINDINGS: There is pulmonary emphysema. The patient is rotated. There are left upper lobe opacity sim ilar to the prior CT scan likely representing areas of parenchymal scarring.[ IMPRESSION: 1. Severe emphysema 2. Left upper lobe opacity similar to the prior CT scan, likely representing areas of parenchymal sca rring. ACT 112: Negative or not required by law. Electronically signed by: Ruben Alves M.D. 09/12/2020 6:54 AM
[2020-09-12] MEDS: IRBESARTAN 150 MG TAB PO SCH (08:37)
[2020-09-12] MEDS: METOPROLOL TARTRATE 25 MG TAB PO SCH ×2 (08:37→20:19)
[2020-09-12] MEDS: CEROVITE ADV FORMULA TAB PO SCH (08:37)
[2020-09-12] MEDS: ASCORBIC ACID 500 MG TAB PO SCH (08:37)
[2020-09-12] MEDS: UMECLIDINIUM BROMIDE 62.5MCG/BLISTER 7 PUFFS/INHALER INH SCH (08:38)
[2020-09-12] MEDS: FLUTICASONE/VILANTEROL 100/25MCG 14 PUFFS/INHALER INH SCH (08:38)
[2020-09-12] MEDS ORDERED: IMMUNE GLOBULIN 10% IV SCH (13:00)
--- NOTE | 2020-09-12 13:55 | Hospitalist Progress Note ---
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 No signs of MDS/current logic neoplasm. No schistocytes to suggest TTP. See if the dose of IV dexamethasone at the time of admission We will start on IVIG's: 1 g/kg body weight for 2 days Discussed with hematology oncology Dr. Winston Hawkins--appreciate input Monitor platelets: 4k>>14K Chronic obstructive pulmonary disease Chronic respiratory failure with hypoxia On 4 liters oxygen at rest and 6 liters while ambulation Continue home inhalers No signs of acute exacerbation Monitor Abdominal aortic aneurysm S/P repair H/O lung nodule Evaluated by pulmonary last admission Follow-up as outpatient Hypertension Continue irbesartan, metoprolol DVT Px: SCDs Re: Thrombocytopenia Code STATUS: FULL CODE DISPOSITION: PT/OT prior to discharge. Needs follow-up with hematology upon discharge Admission and Anticipated Discharge Date Admission Date: September 12, 2020 Subjective Patient is seen and examined at bedside Reports minimal chronic cough which is unchanged Denies any bleeding issues--hematuria, epistaxis, blood in stools Discussed with hematology/oncology today Denies chest pain, dyspnea at rest, dizziness, nausea, vomiting, abdominal pain Reports chronic dyspnea on exertion which is unchanged Review of Systems Review of Systems: All systems reviewed & are unremarkable except as noted in HPI & below Physical Exam Physical Exam: Physical Exam: Vitals signs as noted above General Appearance: Thin, frail, chronically appearing, no apparent distress Head: normocephalic, Atraumatic Eyes: normal inspection, EOMI Neck: supple, Trachea midline Respiratory/Chest: Siginificantly decreased breath sounds, CTA, No accessory muscle use Cardiovascular: S1, S2, No murmur Abdomen/GI:Soft, Non tender, Bowel sounds present Extremities/Musculoskelatal:normal inspection, no edema Neurologic/Psych:AAOX3, grossly no focal neurological deficits Skin: normal color, warm Results & Data Results & Data ([facility]) Vital Signs (Past 12 Hours) Vital Signs Temp Pulse Pulse Resp BP BP Pulse Ox 09/12/20 11:01 36.5 C 67 18 149/73 H 97 09/12/20 07:09 66 09/12/20 07:07 36.4 C L 72 18 148/83 H 99 09/12/20 06:43 37.1 C 74 18 112/58 L 100 09/12/20 06:17 72 09/12/20 05:25 37.0 C 71 18 122/66 100 09/12/20 04:25 36.5 C 65 18 117/65 91 09/12/20 03:55 36.5 C 64 18 106/53 L 92 09/12/20 03:54 36.5 C 64 18 106/53 L 92 09/12/20 03:40 36.4 C L 66 18 120/62 100 09/12/20 03:19 36.5 C 72 18 117/57 L 100 09/12/20 02:00 67 22 127/63 99 Laboratory Results Short CBC 09/11/20 09/11/20 09/12/20 Range/Units 22:49 23:16 05:49 WBC Cancelled 9.28 8.97 Hgb Cancelled 11.0 L 9.4 L Hct Cancelled 36.5 L 31.2 L Plt Count Cancelled 4 L* 14 L* D BMP 09/11/20 09/11/20 09/12/20 22:49 23:16 05:49 Sodium 138 138 Potassium 4.8 4.5 Chloride 101 101 Carbon Dioxide 35 H 36 H BUN 24 H 21 H Creatinine 0.95 0.74 Glucose 116 H 98 Calcium 9.5 8.8 Liver Function 09/11/20 09/11/20 Range/Units 22:49 23:16 Total Bilirubin 0.6 (0.2-1) mg/dl AST 14 L (15-37) U/L ALT 30 (12-78) U/L Alkaline Phosphatase 71 (45-117) U/L Albumin 3.0 L (3.4-5.0) gm/dl Urine 09/12/20 Range/Units 02:55 Urine Color Yellow Urine Appearance Clear (Clear) Urine pH 7.0 (4.5-7.5) Ur Specific [place] 1.022 (1.000-1.030) Urine Protein Negative (Negative) Urine Glucose (UA) Negative (Negative)
[2020-09-12] MEDS ORDERED: IMMUNE GLOBULIN(HUMAN) 10% 200 ML IV SCH (14:00)
[2020-09-12] MEDS: IMMUNE GLOBULIN(HUMAN) 10% 200 ML IV SCH ×3 (14:30→16:58)
[2020-09-12] MEDS: ATORVASTATIN 40 MG TAB PO SCH (20:19)
[2020-09-13 06:34] LABS: Hematocrit (blood only) 29.5 % (42-52); Hemoglobin 9.1 g/dL (14.0-18.0); Mean Corpuscular Hemoglobin 29.4 pg (25-34); Mean Corpuscular Hgb Conc 30.8 g/dL (32-36); Mean Corpuscular Volume 95.5 fL (80-100); Mean Platelet Volume 13.6 fL (7.4-10.4); Platelet Count 30 K/uL (130-400); RDW Coefficient of Variation 14.7 % (11.5-14.5); RDW Standard Deviation 50.7 fL (36.4-46.3); Red Blood Count 3.09 M/uL (4.7-6.1)
[2020-09-13 06:35] LABS: Basophils # (auto) 0.02 K/uL (0-0.2); Basophils % (auto) 0.2 %; Eosinophils # (auto) 0.02 K/uL (0-0.5); Eosinophils % (auto) 0.2 %; Immature Granulocytes # (auto) 0.06 K/uL (0.00-0.02); Immature Granulocytes % (auto) 0.6 %; Lymphocytes % (auto) 7.1 %; Monocytes # (auto) 0.66 K/uL (0.11-0.59); Monocytes % (auto) 6.7 %; Neutrophils # (auto) 8.44 K/uL (1.4-6.5); Neutrophils % (auto) 85.2 %; Platelet Estimate Decreased (Normal)
[2020-09-13 06:47] LABS: BUN Creatinine Ratio 25.9 (10-20); Calcium 8.9 mg/dl (8.5-10.1); Creatinine Clr Calc Pharmacy 60.8 ml/min; Est GFR (African American) 95.3; Est GFR (Non-African American) 82.2; Magnesium 2.2 mg/dl (1.8-2.4); Potassium 4.4 mmol/L (3.5-5.1)
--- NOTE | 2020-09-13 07:11 | Electrocardiogram Report ---
Test Reason : Blood Pressure : / mmHG Vent. Rate : 069 BPM Atrial Rate : 069 BPM P-R Int : 166 ms QRS Dur : 102 ms QT Int : 380 ms P-R-T Axes : 097 096 081 degrees QTc Int : 407 ms Poor data quality, interpretation may be adversely affected Normal sinus rhythm Rightward axis Cannot rule out Inferior infarct , age undetermined ST elevation, consider inferior injury pattern vs early repolarization Abnormal ECG When compared with ECG of 28-AUG-2020 07:07, Minimal criteria for Inferior infarct are now Present T wave amplitude has increased in Anterolateral leads ST elevation now present in Inferior leads Confirmed by Sonu Rodriguez ([id number]) on 09/13/2020 7:11:10 AM Referred By: REFERRED SELF Confirmed By:Sonu Rodriguez
[2020-09-13] MEDS: METOPROLOL TARTRATE 25 MG TAB PO SCH ×2 (08:17→19:42)
[2020-09-13] MEDS: IRBESARTAN 150 MG TAB PO SCH (08:17)
[2020-09-13] MEDS: CEROVITE ADV FORMULA TAB PO SCH (08:17)
[2020-09-13] MEDS: ASCORBIC ACID 500 MG TAB PO SCH (08:17)
[2020-09-13] MEDS: FLUTICASONE/VILANTEROL 100/25MCG 14 PUFFS/INHALER INH SCH (08:18)
[2020-09-13] MEDS: UMECLIDINIUM BROMIDE 62.5MCG/BLISTER 7 PUFFS/INHALER INH SCH (08:18)
--- NOTE | 2020-09-13 14:01 | Hospitalist Progress Note ---
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 No signs of MDS/current logic neoplasm. No schistocytes to suggest TTP We will start on IVIG's: 1 g/kg body weight for 2 days Discussed with hematology oncology Dr. Winston Hawkins--appreciate input Platelet count today is 30-we will monitor Chronic obstructive pulmonary disease Chronic respiratory failure with hypoxia On 4 liters oxygen at rest and 6 liters while ambulation Has been on oxygen at home 4 L at rest and 6 with ambulation Has signs and symptoms of possible exacerbation Will give Solu-Medrol 40 mg twice daily and nebulized bronchodilator Abdominal aortic aneurysm S/P repair H/O lung nodule Evaluated by pulmonary last admission Follow-up as outpatient Hypertension Continue irbesartan, metoprolol DVT Px: SCDs Re: Thrombocytopenia Code STATUS: FULL CODE DISPOSITION: PT/OT prior to discharge. Needs follow-up with hematology upon discharge Admission and Anticipated Discharge Date Admission Date: September 12, 2020 Subjective 09/13/2020 The patient was seen and examined in medical telemetry unit He has been feeling better but he still has shortness of breath at rest and with exertion Does not have any bleeding from anywhere Review of Systems Review of Systems: All systems reviewed and are unremarkable except as noted below Respiratory: + cough, + dyspnea and + dyspnea on exertion Physical Exam Physical Exam: Lying in bed with moderate shortness of breath at rest Constitutional: well developed, well nourished and + ill appearing Eyes: PERRL, conjunctivae normal, anicteric sclerae ENMT: external ear and nose normal, oropharynx normal Neck: trachea midline, no thyromegaly Respiratory: + respiratory distress (Mild to moderate at rest) Auscultation: + diminished lung sounds and + wheezes (Occasional wheezing bilaterally) Cardiovascular: Rate/Rhythm: regular rate and regular rhythm Heart Sounds: no murmur Extremities: no edema Gastrointestinal (Abdomen): Inspection/Auscultation: normal bowel sounds; abdomen not distended Percussion/Palpation: abdomen soft; abdomen nontender Musculoskeletal: No acute arthritis in any joint Neurologic: Alert, awake and oriented x3 Psychiatric: A+Ox3, euthymic affect Lymphatic: no cervical or axillary lymphadenopathy Results & Data Results & Data ([facility]) Vital Signs (Past 12 Hours) Vital Signs Temp Pulse Pulse Resp BP Pulse Ox 09/13/20 11:55 36.8 C 75 18 90/43 L 100 09/13/20 07:31 36.5 C 68 18 127/68 90 09/13/20 07:23 66 09/13/20 02:38 36.7 C 66 18 120/64 100 Laboratory Results Short CBC 09/13/20 Range/Units 05:48 WBC 9.90 (4.8-10.8) K/uL Hgb 9.1 L (14.0-18.0) g/dL Hct 29.5 L (42-52) % Plt Count 30 L D (130-400) K/uL BMP 09/13/20 05:48 Sodium 134 L Potassium 4.4 Chloride 97 L Carbon Dioxide 38 H BUN 21 H Creatinine 0.81 Glucose 95 Calcium 8.9 Medications Administered Current Inpatient Medications Acetaminophen (Acetaminophen 325 Mg Tab) 650 mg PO Q4H PRN PRN Reason: Pain or Fever Stop: 10/12/20 03:04 Albuterol (Albuterol 0.083% Nebu Soln 3 Ml Vial) 2.5 mg NEB Q6R PRN PRN Reason: Shortness Of Breath Or Wheezing Stop: 10/13/20 14:01 Ascorbic Acid (Ascorbic Acid 500 Mg Tab) 1,000 mg PO DAILY MABEL Stop: 10/12/20 08:59 Last Admin: 09/13/20 08:17 Dose: 1,000 mg Documented by: Atorvastatin Calcium (Atorvastatin 40 Mg Tab) 40 mg PO HS [facility] Stop: 10/12/20 20:59 Last Admin: 09/12/20 20:19 Dose: 40 mg Documented by: Fluticasone/Vilanterol (Fluticasone/Vilanterol 100/25mcg 14 Puffs/Inhaler) 1 puffs INH DAILY MABEL Stop: 10/12/20 08:59 Last Admin: 09/13/20 08:18 Dose: 1 puffs Documented by: Immune Globulin (Flebogamma 10%) 200 mls @ 0 mls/hr IV TODAY@1400,1430,1500 MABEL; Protocol Stop: 09/13/20 15:01 Last Infusion: 09/12/20 17:39 Dose: Infused Documented by: Methylprednisolone 40 mg/ (Syringe) 0.64 mls @ 1.5 mls/min IV BID [facility] Stop: 10/13/20 20:59 Irbesartan (Irbesartan 150 Mg Tab) 150 mg PO DAILY M[facility]EL Stop: 10/12/20 08:59 Last Admin: 09/13/20 08:17 Dose: 150 mg Documented by: Metoprolol Tartrate (Metoprolol Tartrate 25 Mg Tab) 25 mg PO BID [facility] Stop: 10/12/20 08:59 Last Admin: 09/13/20 08:17 Dose: 25 mg Documented by: Multivitamins/Minerals (Cerovite Adv Formula Tab) 1 tab PO DAILY [facility] Stop: 10/12/20 08:59 Last Admin: 09/13/20 08:17 Dose: 1 tab Documented by: Nitroglycerin (Nitroglycerin Sl 0.4 Mg/Tab Tab) 0.4 mg SL UD PRN PRN Reason: Chest Pain Stop: 10/12/20 03:04 Ondansetron HCl (Ondansetron Inj 2 Mg/Ml 2 Ml Vial) 4 mg IV Q6H PRN PRN Reason: Nausea Stop: 10/12/20 03:04 Polyethylene Glycol (Polyethylene (Miralax) 17 Gm Pack) 17 gm PO DAILY PRN PRN Reason: Constipation Stop: 10/12/20 03:04 Umeclidinium [place] (Umeclidinium [place] 62.5mcg/Blister 7 Puffs/Inhaler) 1 puffs INH DAILY [facility]EL Stop: 10/12/20 08:59 Last Admin: 09/13/20 08:18 Dose: 1 puffs Documented by:
[2020-09-13] MEDS ORDERED: ALBUTEROL 0.083% NEBU SOLN 3 ML VIAL NEB PRN (14:02)
[2020-09-13] MEDS: IMMUNE GLOBULIN(HUMAN) 10% 200 ML IV SCH ×3 (14:34→17:31)
[2020-09-13] MEDS ORDERED: SODIUM CHLORIDE 0.9% 500 ML IV STA (16:09)
[2020-09-13] MEDS: methylPREDNISolone 40 MG in SYRINGE 0 ML IV SCH (19:42)
[2020-09-13] MEDS: ATORVASTATIN 40 MG TAB PO SCH (19:42)
[2020-09-14 06:29] LABS: Hematocrit (blood only) 29.5 % (42-52); Hemoglobin 9.1 g/dL (14.0-18.0); Lymphocytes % (auto) 5.8 %; Mean Corpuscular Hemoglobin 29.4 pg (25-34); Mean Corpuscular Hgb Conc 30.8 g/dL (32-36); Mean Corpuscular Volume 95.5 fL (80-100); Monocytes % (auto) 2.7 %; Neutrophils % (auto) 91.1 %; Platelet Count 49 K/uL (130-400); RDW Coefficient of Variation 14.5 % (11.5-14.5); RDW Standard Deviation 49.7 fL (36.4-46.3); Red Blood Count 3.09 M/uL (4.7-6.1)
[2020-09-14 06:30] LABS: Immature Granulocytes # (auto) 0.02 K/uL (0.00-0.02); Immature Granulocytes % (auto) 0.4 %; Lymphocytes # (auto) 0.28 K/uL (1.2-3.4); Monocytes # (auto) 0.13 K/uL (0.11-0.59); Neutrophils # (auto) 4.37 K/uL (1.4-6.5)
[2020-09-14 06:47] LABS: BUN Creatinine Ratio 29.4 (10-20); Calcium 8.7 mg/dl (8.5-10.1); Creatinine Clr Calc Pharmacy 61.6 ml/min; Est GFR (African American) 95.7; Est GFR (Non-African American) 82.6; Magnesium 2.2 mg/dl (1.8-2.4); Phosphorus 3.2 mg/dl (2.5-4.9); Potassium 5.1 mmol/L (3.5-5.1)
[2020-09-14] MEDS: methylPREDNISolone 40 MG in SYRINGE 0 ML IV SCH ×2 (07:57→19:53)
[2020-09-14] MEDS: METOPROLOL TARTRATE 25 MG TAB PO SCH ×2 (07:57→19:53)
[2020-09-14] MEDS: FLUTICASONE/VILANTEROL 100/25MCG 14 PUFFS/INHALER INH SCH (07:58)
[2020-09-14] MEDS: ASCORBIC ACID 500 MG TAB PO SCH (07:58)
[2020-09-14] MEDS: UMECLIDINIUM BROMIDE 62.5MCG/BLISTER 7 PUFFS/INHALER INH SCH (07:58)
[2020-09-14] MEDS: CEROVITE ADV FORMULA TAB PO SCH (07:58)
[2020-09-14] MEDS: IRBESARTAN 150 MG TAB PO SCH (07:58)
--- NOTE | 2020-09-14 13:00 | Hospitalist Progress Note ---
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 No signs of MDS/current logic neoplasm. No schistocytes to suggest TTP We will start on IVIG's: 1 g/kg body weight for 2 days Discussed with hematology oncology Dr. Winston Hawkins--appreciate input Platelet count today is 30-we will monitor Platelet count has went up to 49-no evidence of any bleeding Chronic obstructive pulmonary disease Chronic respiratory failure with hypoxia On 4 liters oxygen at rest and 6 liters while ambulation Has been on oxygen at home 4 L at rest and 6 with ambulation Has signs and symptoms of possible exacerbation Will give Solu-Medrol 40 mg twice daily and nebulized bronchodilator He has been feeling better but clinically looks the same Abdominal aortic aneurysm S/P repair H/O lung nodule Evaluated by pulmonary last admission Follow-up as outpatient Hypertension Continue irbesartan, metoprolol DVT Px: SCDs Re: Thrombocytopenia Code STATUS: FULL CODE DISPOSITION: PT/OT prior to discharge. Needs follow-up with hematology upon discharge Has been getting PT and OT evaluation Likely discharge tomorrow Admission and Anticipated Discharge Date Admission Date: September 12, 2020 Subjective 09/13/2020 The patient was seen and examined in medical telemetry unit He has been feeling better but he still has shortness of breath at rest and with exertion Does not have any bleeding from anywhere 09/14/2020 The patient was seen and examined in medical telemetry unit He has been feeling much better but remains in moderate shortness of breath at rest and that is his usual state at home Denies any cough and/or fever. No chest pain and/or palpitation Review of Systems Review of Systems: All systems reviewed and are unremarkable except as noted below Respiratory: + cough, + dyspnea and + dyspnea on exertion Physical Exam Physical Exam: Lying in bed with moderate shortness of breath at rest Constitutional: well developed, well nourished and + ill appearing Eyes: PERRL, conjunctivae normal, anicteric sclerae ENMT: external ear and nose normal, oropharynx normal Neck: trachea midline, no thyromegaly Respiratory: + respiratory distress (Mild to moderate at rest) Auscultation: + diminished lung sounds and + wheezes (Occasional wheezing bilaterally) Cardiovascular: Rate/Rhythm: regular rate and regular rhythm Heart Sounds: no murmur Extremities: no edema Gastrointestinal (Abdomen): Inspection/Auscultation: normal bowel sounds; abdomen not distended Percussion/Palpation: abdomen soft; abdomen nontender Musculoskeletal: No acute arthritis in any joint Neurologic: Alert, awake and oriented x3. Generally weak and lethargic. Psychiatric: A+Ox3, euthymic affect Lymphatic: no cervical or axillary lymphadenopathy Results & Data Results & Data ([facility]) Vital Signs (Past 12 Hours) Vital Signs Temp Pulse Pulse Resp BP Pulse Ox 09/14/20 11:24 36.8 C 51 L 18 121/65 94 09/14/20 08:00 80 09/14/20 07:00 36.5 C 82 22 128/51 L 96 09/14/20 02:42 36.6 C 78 16 118/72 98 Laboratory Results Short CBC 09/14/20 Range/Units 05:17 WBC 4.80 D (4.8-10.8) K/uL Hgb 9.1 L (14.0-18.0) g/dL Hct 29.5 L (42-52) % Plt Count 49 L D (130-400) K/uL BMP 09/14/20 05:17 Sodium 132 L Potassium 5.1 D Chloride 97 L Carbon Dioxide 35 H BUN 24 H Creatinine 0.80 Glucose 130 H Calcium 8.7 Medications Administered Current Inpatient Medications Acetaminophen (Acetaminophen 325 Mg Tab) 650 mg PO Q4H PRN PRN Reason: Pain or Fever Stop: 10/12/20 03:04 Albuterol (Albuterol 0.083% Nebu Soln 3 Ml Vial) 2.5 mg NEB Q6R PRN PRN Reason: Shortness Of Breath Or Wheezing Stop: 10/13/20 14:01 Ascorbic Acid (Ascorbic Acid 500 Mg Tab) 1,000 mg PO DAILY MABEL Stop: 10/12/20 08:59 Last Admin: 09/14/20 07:58 Dose: 1,000 mg Documented by: Atorvastatin Calcium (Atorvastatin 40 Mg Tab) 40 mg PO HS [facility]ABEL Stop: 10/12/20 20:59 Last Admin: 09/13/20 19:42 Dose: 40 mg Documented by: Fluticasone/Vilanterol (Fluticasone/Vilanterol 100/25mcg 14 Puffs/Inhaler) 1 puffs INH DAILY [facility] Stop: 10/12/20 08:59 Last Admin: 09/14/20 07:58 Dose: 1 puffs Documented by: Methylprednisolone 40 mg/ (Syringe) 0.64 mls @ 1.5 mls/min IV BID MABEL Stop: 10/13/20 20:59 Last Admin: 09/14/20 07:57 Dose: 1.5 mls/min Documented by: Irbesartan (Irbesartan 150 Mg Tab) 150 mg PO DAILY MABEL Stop: 10/12/20 08:59 Last Admin: 09/14/20 07:58 Dose: 150 mg Documented by: Metoprolol Tartrate (Metoprolol Tartrate 25 Mg Tab) 25 mg PO BID MABEL Stop: 10/12/20 08:59 Last Admin: 09/14/20 07:57 Dose: 25 mg Documented by: Multivitamins/Minerals (Cerovite Adv Formula Tab) 1 tab PO DAILY [facility]ABEL Stop: 10/12/20 08:59 Last Admin: 09/14/20 07:58 Dose: 1 tab Documented by: Nitroglycerin (Nitroglycerin Sl 0.4 Mg/Tab Tab) 0.4 mg SL UD PRN PRN Reason: Chest Pain Stop: 10/12/20 03:04 Ondansetron HCl (Ondansetron Inj 2 Mg/Ml 2 Ml Vial) 4 mg IV Q6H PRN PRN Reason: Nausea Stop: 10/12/20 03:04 Polyethylene Glycol (Polyethylene (Miralax) 17 Gm Pack) 17 gm PO DAILY PRN PRN Reason: Constipation Stop: 10/12/20 03:04 Umeclidinium [place] (Umeclidinium [place] 62.5mcg/Blister 7 Puffs/Inhaler) 1 puffs INH DAILY [facility] Stop: 10/12/20 08:59 Last Admin: 09/14/20 07:58 Dose: 1 puffs Documented by:
[2020-09-14] MEDS: ATORVASTATIN 40 MG TAB PO SCH (19:53)
[2020-09-15 06:34] LABS: BUN Creatinine Ratio 33.9 (10-20); Calcium 9.3 mg/dl (8.5-10.1); Creatinine Clr Calc Pharmacy 62.3 ml/min; Est GFR (African American) 96.2; Potassium 4.8 mmol/L (3.5-5.1)
[2020-09-15] MEDS: METOPROLOL TARTRATE 25 MG TAB PO SCH ×2 (08:19→20:12)
[2020-09-15] MEDS: methylPREDNISolone 40 MG in SYRINGE 0 ML IV SCH ×2 (08:19→20:12)
[2020-09-15] MEDS: IRBESARTAN 150 MG TAB PO SCH (08:20)
[2020-09-15] MEDS: ASCORBIC ACID 500 MG TAB PO SCH (08:20)
[2020-09-15] MEDS: CEROVITE ADV FORMULA TAB PO SCH (08:20)
[2020-09-15] MEDS: FLUTICASONE/VILANTEROL 100/25MCG 14 PUFFS/INHALER INH SCH (08:21)
[2020-09-15] MEDS: UMECLIDINIUM BROMIDE 62.5MCG/BLISTER 7 PUFFS/INHALER INH SCH (08:21)
--- NOTE | 2020-09-15 13:48 | Hospitalist Progress Note ---
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 No signs of MDS/current logic neoplasm. No schistocytes to suggest TTP We will start on IVIG's: 1 g/kg body weight for 2 days Discussed with hematology oncology Dr. Winston Hawkins--appreciate input Platelet count today is 30-we will monitor Platelet count has went up to 49-no evidence of any bleeding Chronic obstructive pulmonary disease Chronic respiratory failure with hypoxia On 4 liters oxygen at rest and 6 liters while ambulation Has been on oxygen at home 4 L at rest and 6 with ambulation Has signs and symptoms of possible exacerbation Will give Solu-Medrol 40 mg twice daily and nebulized bronchodilator We will change Solu-Medrol to oral prednisone on a tapering course Back to his baseline and ready to be discharged this afternoon Abdominal aortic aneurysm S/P repair H/O lung nodule Evaluated by pulmonary last admission Follow-up as outpatient Hypertension Continue irbesartan, metoprolol DVT Px: SCDs Re: Thrombocytopenia Code STATUS: FULL CODE DISPOSITION: PT/OT prior to discharge. Needs follow-up with hematology upon discharge Has been getting PT and OT evaluation-recommended home Will be discharged home this afternoon Admission and Anticipated Discharge Date Admission Date: September 12, 2020 Subjective 09/13/2020 The patient was seen and examined in medical telemetry unit He has been feeling better but he still has shortness of breath at rest and with exertion Does not have any bleeding from anywhere 09/14/2020 The patient was seen and examined in medical telemetry unit He has been feeling much better but remains in moderate shortness of breath at rest and that is his usual state at home Denies any cough and/or fever. No chest pain and/or palpitation 09/15/2020 The patient was seen and examined in medical telemetry unit He is back to his baseline and wants to be discharged Denies any significant symptoms Review of Systems Review of Systems: All systems reviewed and are unremarkable except as noted below Respiratory: + cough, + dyspnea and + dyspnea on exertion Physical Exam Physical Exam: Sitting on a chair without any acute distress Constitutional: well developed, well nourished and + ill appearing Eyes: PERRL, conjunctivae normal, anicteric sclerae ENMT: external ear and nose normal, oropharynx normal Neck: trachea midline, no thyromegaly Respiratory: + respiratory distress (Mild to moderate at rest) Auscultation: + diminished lung sounds and + wheezes (Occasional wheezing bilaterally) Cardiovascular: Rate/Rhythm: regular rate and regular rhythm Heart Sounds: no murmur Extremities: no edema Gastrointestinal (Abdomen): Inspection/Auscultation: normal bowel sounds; abdomen not distended Percussion/Palpation: abdomen soft; abdomen nontender Musculoskeletal: No acute arthritis in any joint Neurologic: Alert, awake and oriented x3. No focal sensory and motor deficit appreciated Psychiatric: A+Ox3, euthymic affect Lymphatic: no cervical or axillary lymphadenopathy Results & Data Results & Data ([facility]) Vital Signs (Past 12 Hours) Vital Signs Temp Pulse Pulse Resp BP BP Pulse Ox 09/15/20 11:33 36.8 C 86 18 95/53 L 95 09/15/20 07:25 36.9 C 77 18 112/54 L 96 09/15/20 07:18 73 09/15/20 03:04 36.6 C 62 21 122/63 97 Laboratory Results [facility] 09/15/20 05:41 Sodium 132 L Potassium 4.8 Chloride 97 L Carbon Dioxide 37 H BUN 27 H Creatinine 0.79 Glucose 129 H Calcium 9.3 Medications Administered Current Inpatient Medications Acetaminophen (Acetaminophen 325 Mg Tab) 650 mg PO Q4H PRN PRN Reason: Pain or Fever Stop: 10/12/20 03:04 Albuterol (Albuterol 0.083% Nebu Soln 3 Ml Vial) 2.5 mg NEB Q6R PRN PRN Reason: Shortness Of Breath Or Wheezing Stop: 10/13/20 14:01 Ascorbic Acid (Ascorbic Acid 500 Mg Tab) 1,000 mg PO DAILY MABEL Stop: 10/12/20 08:59 Last Admin: 09/15/20 08:20 Dose: 1,000 mg Documented by: Atorvastatin Calcium (Atorvastatin 40 Mg Tab) 40 mg PO HS MABEL Stop: 10/12/20 20:59 Last Admin: 09/14/20 19:53 Dose: 40 mg Documented by: Fluticasone/Vilanterol (Fluticasone/Vilanterol 100/25mcg 14 Puffs/Inhaler) 1 puffs INH DAILY [facility] Stop: 10/12/20 08:59 Last Admin: 09/15/20 08:21 Dose: 1 puffs Documented by: Methylprednisolone 40 mg/ (Syringe) 0.64 mls @ 1.5 mls/min IV BID [facility] Stop: 10/13/20 20:59 Last Admin: 09/15/20 08:19 Dose: 1.5 mls/min Documented by: Irbesartan (Irbesartan 150 Mg Tab) 150 mg PO DAILY [facility] Stop: 10/12/20 08:59 Last Admin: 09/15/20 08:20 Dose: 150 mg Documented by: Metoprolol Tartrate (Metoprolol Tartrate 25 Mg Tab) 25 mg PO BID [facility] Stop: 10/12/20 08:59 Last Admin: 09/15/20 08:19 Dose: 25 mg Documented by: Multivitamins/Minerals (Cerovite Adv Formula Tab) 1 tab PO DAILY [facility] Stop: 10/12/20 08:59 Last Admin: 09/15/20 08:20 Dose: 1 tab Documented by: Nitroglycerin (Nitroglycerin Sl 0.4 Mg/Tab Tab) 0.4 mg SL UD PRN PRN Reason: Chest Pain Stop: 10/12/20 03:04 Ondansetron HCl (Ondansetron Inj 2 Mg/Ml 2 Ml Vial) 4 mg IV Q6H PRN PRN Reason: Nausea Stop: 10/12/20 03:04 Polyethylene Glycol (Polyethylene (Miralax) 17 Gm Pack) 17 gm PO DAILY PRN PRN Reason: Constipation Stop: 10/12/20 03:04 Umeclidinium [place] (Umeclidinium [place] 62.5mcg/Blister 7 Puffs/Inhaler) 1 puffs INH DAILY [facility] Stop: 10/12/20 08:59 Last Admin: 09/15/20 08:21 Dose: 1 puffs Documented by:
[2020-09-15] MEDS: ATORVASTATIN 40 MG TAB PO SCH (20:12)
[2020-09-16] MEDS: METOPROLOL TARTRATE 25 MG TAB PO SCH (07:53)
[2020-09-16] MEDS: CEROVITE ADV FORMULA TAB PO SCH (07:54)
[2020-09-16] MEDS: ASCORBIC ACID 500 MG TAB PO SCH (07:54)
[2020-09-16] MEDS: IRBESARTAN 150 MG TAB PO SCH (07:54)
[2020-09-16] MEDS: FLUTICASONE/VILANTEROL 100/25MCG 14 PUFFS/INHALER INH SCH (07:54)
[2020-09-16] MEDS: methylPREDNISolone 40 MG in SYRINGE 0 ML IV SCH (07:54)
[2020-09-16] MEDS: UMECLIDINIUM BROMIDE 62.5MCG/BLISTER 7 PUFFS/INHALER INH SCH (07:55)
[2020-09-16 11:24] LABS: Hematocrit (blood only) 32.4 % (42-52); Mean Corpuscular Hemoglobin 29.4 pg (25-34); Mean Corpuscular Hgb Conc 30.9 g/dL (32-36); Mean Corpuscular Volume 95.3 fL (80-100); Mean Platelet Volume 11.6 fL (7.4-10.4); Platelet Count 78 K/uL (130-400); RDW Coefficient of Variation 14.4 % (11.5-14.5); RDW Standard Deviation 49.7 fL (36.4-46.3); White Blood Count 9.79 K/uL (4.8-10.8)
[2020-09-16 11:45] LABS: Echinocytes 1+; Giant Platelets 1+; Immature Granulocytes # (auto) 0.01 K/uL (0.00-0.02); Immature Granulocytes % (auto) 0.1 %; Lymphocytes # (auto) 0.46 K/uL (1.2-3.4); Lymphocytes % (auto) 4.7 %; Monocytes # (auto) 0.03 K/uL (0.11-0.59); Monocytes % (auto) 0.3 %; Neutrophils # (auto) 9.29 K/uL (1.4-6.5); Neutrophils % (auto) 94.9 %; Ovalocytes 1+
--- NOTE | 2020-09-16 12:34 | Hospitalist Progress Note ---
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 No signs of MDS/current logic neoplasm. No schistocytes to suggest TTP We will start on IVIG's: 1 g/kg body weight for 2 days Discussed with hematology oncology Dr. Winston Hawkins--appreciate input Platelet count today is 30-we will monitor Platelet count has went up to 49-no evidence of any bleeding Platelet count is 78 as of 09/16/2020 Will be discharged home this afternoon and will have geriatric assistant Chronic obstructive pulmonary disease Chronic respiratory failure with hypoxia On 4 liters oxygen at rest and 6 liters while ambulation Has been on oxygen at home 4 L at rest and 6 with ambulation Has signs and symptoms of possible exacerbation Will give Solu-Medrol 40 mg twice daily and nebulized bronchodilator We will change Solu-Medrol to oral prednisone on a tapering course Back to his baseline and ready to be discharged this afternoon He will be going to [facility] short-term rehab Abdominal aortic aneurysm S/P repair H/O lung nodule Evaluated by pulmonary last admission Follow-up as outpatient Hypertension Continue irbesartan, metoprolol DVT Px: SCDs Re: Thrombocytopenia Code STATUS: FULL CODE DISPOSITION: PT/OT prior to discharge. Needs follow-up with hematology upon discharge Has been getting PT and OT evaluation-recommended home Discussed with the son Will be discharged to [facility] this afternoon Admission and Anticipated Discharge Date Admission Date: September 12, 2020 Subjective 09/13/2020 The patient was seen and examined in medical telemetry unit He has been feeling better but he still has shortness of breath at rest and with exertion Does not have any bleeding from anywhere 09/14/2020 The patient was seen and examined in medical telemetry unit He has been feeling much better but remains in moderate shortness of breath at rest and that is his usual state at home Denies any cough and/or fever. No chest pain and/or palpitation 09/15/2020 The patient was seen and examined in medical telemetry unit He is back to his baseline and wants to be discharged Denies any significant symptoms 09/16/2020 The patient was seen and examined in medical telemetry unit He has been looking much better today and is shortness of breath is at baseline Denies any other symptoms especially no hemorrhage from anywhere COVID-19 test is negative Review of Systems Review of Systems: All systems reviewed and are unremarkable except as noted below Respiratory: + cough, + dyspnea and + dyspnea on exertion Physical Exam Physical Exam: Sitting on a chair without any acute distress Constitutional: well developed, well nourished and + ill appearing Eyes: PERRL, conjunctivae normal, anicteric sclerae ENMT: external ear and nose normal, oropharynx normal Neck: trachea midline, no thyromegaly Respiratory: + respiratory distress (Mild to moderate at rest) Auscultation: + diminished lung sounds and + wheezes (Occasional wheezing bilaterally) Cardiovascular: Rate/Rhythm: regular rate and regular rhythm Heart Sounds: no murmur Extremities: no edema Gastrointestinal (Abdomen): Inspection/Auscultation: normal bowel sounds; abdomen not distended Percussion/Palpation: abdomen soft; abdomen nontender Musculoskeletal: No acute arthritis in any joint Neurologic: Alert, awake and oriented x3. Generally weak Psychiatric: A+Ox3, euthymic affect Lymphatic: no cervical or axillary lymphadenopathy Results & Data Results & Data ([facility]) Vital Signs (Past 12 Hours) Vital Signs Temp Pulse Resp BP Pulse Ox 09/16/20 07:42 36.5 C 83 18 157/75 H 98 Laboratory Results Short CBC 09/16/20 Range/Units 11:11 WBC 9.79 (4.8-10.8) K/uL Hgb 10.0 L (14.0-18.0) g/dL Hct 32.4 L (42-52) % Plt Count 78 L (130-400) K/uL Medications Administered Current Inpatient Medications Acetaminophen (Acetaminophen 325 Mg Tab) 650 mg PO Q4H PRN PRN Reason: Pain or Fever Stop: 10/12/20 03:04 Albuterol (Albuterol 0.083% Nebu Soln 3 Ml Vial) 2.5 mg NEB Q6R PRN PRN Reason: Shortness Of Breath Or Wheezing Stop: 10/13/20 14:01 Ascorbic Acid (Ascorbic Acid 500 Mg Tab) 1,000 mg PO DAILY [facility]EL Stop: 10/12/20 08:59 Last Admin: 09/16/20 07:54 Dose: 1,000 mg Documented by: Atorvastatin Calcium (Atorvastatin 40 Mg Tab) 40 mg PO HS [facility]ABEL Stop: 10/12/20 20:59 Last Admin: 09/15/20 20:12 Dose: 40 mg Documented by: Fluticasone/Vilanterol (Fluticasone/Vilanterol 100/25mcg 14 Puffs/Inhaler) 1 puffs INH DAILY [facility] Stop: 10/12/20 08:59 Last Admin: 09/16/20 07:54 Dose: 1 puffs Documented by: Methylprednisolone 40 mg/ (Syringe) 0.64 mls @ 1.5 mls/min IV BID [facility] Stop: 10/13/20 20:59 Last Admin: 09/16/20 07:54 Dose: 1.5 mls/min Documented by: Irbesartan (Irbesartan 150 Mg Tab) 150 mg PO DAILY [facility] Stop: 10/12/20 08:59 Last Admin: 09/16/20 07:54 Dose: 150 mg Documented by: Metoprolol Tartrate (Metoprolol Tartrate 25 Mg Tab) 25 mg PO BID [facility] Stop: 10/12/20 08:59 Last Admin: 09/16/20 07:53 Dose: 25 mg Documented by: Multivitamins/Minerals (Cerovite Adv Formula Tab) 1 tab PO DAILY [facility] Stop: 10/12/20 08:59 Last Admin: 09/16/20 07:54 Dose: 1 tab Documented by: Nitroglycerin (Nitroglycerin Sl 0.4 Mg/Tab Tab) 0.4 mg SL UD PRN PRN Reason: Chest Pain Stop: 10/12/20 03:04 Ondansetron HCl (Ondansetron Inj 2 Mg/Ml 2 Ml Vial) 4 mg IV Q6H PRN PRN Reason: Nausea Stop: 10/12/20 03:04 Polyethylene Glycol (Polyethylene (Miralax) 17 Gm Pack) 17 gm PO DAILY PRN PRN Reason: Constipation Stop: 10/12/20 03:04 Umeclidinium [place] (Umeclidinium [place] 62.5mcg/Blister 7 Puffs/Inhaler) 1 puffs INH DAILY [facility] Stop: 10/12/20 08:59 Last Admin: 09/16/20 07:55 Dose: 1 puffs Documented by:
--- NOTE | 2020-09-17 08:39 | Discharge Summary ---
Date of Service September 17, 2020 Admission HPI Per Admitting Provider DICTATED BY: Sree Espana MD DATE OF ADMISSION: 09/12/2020 CHIEF COMPLAINT: Abnormal labs. HISTORY OF PRESENT ILLNESS: This is an 84-year-old male with past medical history significant for COPD, hyperlipidemia, atherosclerotic cardiovascular disease, hypertension, history of aortic root dilatation, BPH, who was recently in the hospital with chronic obstructive pulmonary disease exacerbation and acute on chronic respiratory failure. He was discharged on 4 liters oxygen at rest and 6 liters of oxygen with activity. During admission, he was found to have CMV and EBV viral infection, also lung nodule was found, seen by Pulmonary, recommended to be just observation for now. He was also found to have low platelets, his platelets at that time on admission was 10. He received 2 units of platelets and at the time of discharge, platelets were 14. Today's outpatient labs, CBC checked and his platelets are 4, so advised to come back to the hospital. The patient denies any bleeding . Denies any blood in the stools or black stools or hematuria or epistaxis. He has chronic shortness of breath, not ambulating much, he just can go to commode with a walker. Lives alone. Family lives close by. Denies any fever, chills. Denies any cough. No headache, no blurred vision, no earache, no runny nose, no sore throat. Appetite is okay. No chest pain, no abdominal pain, no nausea. Currently resting comfortably and hemodynamically stable. Admission Exam Per Admitting Provider GENERAL: The patient is old and frail, not in acute distress. VITAL SIGNS: Temperature 36.4, pulse 77, respiratory rate in 20s, blood pressure 113/65, oxygen 90% on 4 liters. HEENT: Pupils equal, round, and reactive to light. Oral mucosa moist. NECK: No JVD, no neck masses. CARDIOVASCULAR: S1, S2, regular rate and rhythm, no murmur, no gallop. RESPIRATORY SYSTEM: Normal AP diameter. No accessory muscle use. No wheezing, no crackles. ABDOMEN: Soft, bowel sounds present, nontender. No distention. CENTRAL NERVOUS SYSTEM: Cranial nerves II-XII grossly intact. Nonfocal. EXTREMITIES: Mild pedal edema present, no erythema seen. Principal Diagnosis Thrombocytopenia secondary to ITP, chronic obstructive pulmonary disease on home oxygen, hypertension, history of abdominal aortic aneurysm status post repair Discharge Exam Constitutional well developed, well nourished and + ill appearing Eyes PERRL, conjunctivae normal, anicteric sclerae ENMT external ear and nose normal, oropharynx normal Neck trachea midline, no thyromegaly Respiratory + respiratory distress (Mild to moderate at rest) Auscultation: + diminished lung sounds and + wheezes (Occasional wheezing bilaterally) Cardiovascular Rate/Rhythm: regular rate and regular rhythm Heart Sounds: no murmur Extremities: no edema Gastrointestinal (Abdomen) Inspection/Auscultation: normal bowel sounds; abdomen not distended Percussion/Palpation: abdomen soft; abdomen nontender Psychiatric A+Ox3, euthymic affect Lymphatic no cervical or axillary lymphadenopathy Discharge Data Allergies Allergy/AdvReac Type Severity Reaction Status Date / Time No Known Allergies Allergy Verified 09/11/20 23:01 Consultations 09/12/20 00:02 ED Decision to Admit Stat 09/12/20 03:05 Consult Case Management - Discharge Planning Routine 09/12/20 08:00 Consult Hematology Routine Hospital Course (1) Thrombocytopenia: Patient is an 84 yr male who presents with abnormal labs, severe thrombocytopenia, platelets of 4K 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 No signs of MDS/current logic neoplasm. No schistocytes to suggest TTP We will start on IVIG's: 1 g/kg body weight for 2 days Discussed with hematology oncology Dr. Winston Hawkins--appreciate input Platelet count today is 30-we will monitor Platelet count has went up to 49-no evidence of any bleeding Platelet count is 78 as of 09/16/2020 Will be discharged home this afternoon and will have sports betting manager Chronic obstructive pulmonary disease Chronic respiratory failure with hypoxia On 4 liters oxygen at rest and 6 liters while ambulation Has been on oxygen at home 4 L at rest and 6 with ambulation Has signs and symptoms of possible exacerbation Will give Solu-Medrol 40 mg twice daily and nebulized bronchodilator We will change Solu-Medrol to oral prednisone on a tapering course Back to his baseline and ready to be discharged this afternoon He will be going to [facility] short-term rehab Abdominal aortic aneurysm S/P repair H/O lung nodule Evaluated by pulmonary last admission Follow-up as outpatient Hypertension Continue irbesartan, metoprolol DVT Px: SCDs Re: Thrombocytopenia Code STATUS: FULL CODE DISPOSITION: PT/OT prior to discharge. Needs follow-up with hematology upon discharge Has been getting PT and OT evaluation-recommended home Discussed with the son Will be discharged to [facility] this afternoon Total Time Total Time Spent Total Time Spent (In Minutes): 40 minutes Total Time Includes: Examination of the Patient, Discharge Planning, Medication Reconciliation and Communication With Other Providers Discharge Plan Discharge Items Patient Disposition: Transfer Intermediate Fac Reason For Visit: ABNORMAL LABS Discharge Diagnosis: Thrombocytopenia secondary to ITP, chronic obstructive pulmonary disease on home oxygen, hypertension, history of abdominal aortic aneurysm status post repair Condition on Discharge: Fair Activity: Resume your previous activity Non-emergency contact: Primary Care Provider Call non-emergency contact if: you have any medication questions and your symptoms worsen Follow-up/Referrals: Woodrow Zamorano MD [Primary Care Provider] - (Date & Time 09/19/2020 10:00 AM Provider Woodrow Zamorano MD [facility] ) Diet: Heart Healthy Addtl Attending Provider Instructions: Please take precaution to avoid falls Please finish the course of prednisone as advised Use your oxygen as advised before You will need to have a follow-up appointment with the oncologist for your low platelet count Pending Studies at Discharge: No Stand-Alone Forms: My [employer], Smoking Cessation Skilled Items Patient informed of condition?: Yes DNR: No Discharge Level of Care: Skilled Communicable Disease: No Discharge Prognosis: Stable Lines: None Urinary Catheter: No Medications and DC Order Prescriptions: New Combivent Respimat 20-100 mcg/actuation mist 1 puff inhalation Q6H PRN (Reason: sob) Qty: 4 RF: 0 prednisone 10 mg tablet 10 mg PO UD Qty: 18 RF: 0 Continued Spiriva with HandiHaler 18 mcg capsule, w/inhalation device 1 cap INH DAILY Qty: 30 RF: 11 irbesartan 150 mg tablet 150 mg PO DAILY Qty: 90 RF: 3 metoprolol tartrate 25 mg tablet 25 mg PO BID Qty: 180 RF: 2 [id number] Tablet 1 tab PO DAILY RF: 0 doxycycline hyclate 100 mg tablet 100 mg PO BID PRN (Reason: Rescue Kit) RF: 0 prednisone 10 mg tablet 10 mg PO DIRECTED PRN (Reason: Rescue Kit) RF: 0 atorvastatin 40 mg tablet 40 mg PO HS RF: 0 ascorbic acid (vitamin C) 1,000 mg Tablet Extended Release 1,000 mg PO DAILY RF: 0 Breo Ellipta 100-25 mcg/dose Blister With Device 1 ea inhalation DAILY 30 Days Qty: 28 RF: 3 Discharge Orders: Discharge Order (Routine); Ordered 09/15/20 Ordered By: Sean Ricci Admission Data Admit Date/Time: 09/12/20 01:43 Attending Provider: Sean Ricci Admit Provider: Sree Espana Primary Care Provider: Woodrow Zamorano Other Providers: Fredrick Prado ; Sree Espana ; Winston Hawkins ; Darlene Terrazas at [place] Other Interventions: Discharge Summary Assessment (RN) Last Done: 09/16/20 16:59
== END 2020-09-16 17:00 | DRG 813 ==
LOC: ED 22:25 → 2N 09-12 01:43 → SUATTDRO 09-12 01:43 → 2N 09-12 03:00